=== PATIENT | female | born 1955 | race Caucasian/White ===

== ENCOUNTER 2017-09-08 08:23 | Outpatient (CLI) | payer BC ==
--- NOTE | 2017-09-20 16:00 | MMO ---
BILATERAL DIGITAL SCREENING MAMMOGRAMS: Date: 09/08/2017 HISTORY: A 62-year-old female presents for digital screening mammography. COMPARISON: 04/04/2007. FINDINGS: This patient's mammogram was interpreted with the assistance of computer-aided detection. Scattered areas of fibroglandular density are noted bilaterally. Typically benign calcifications ar e noted. No evidence of malignancy. IMPRESSION: BIRADS 2: Benign Finding(s) Continue routine screening. POS: [facility]
== END 2017-09-08 08:24 | disposition home or self-care (01) ==
LOC: MAMMO 08:23
PROVIDERS: ATTEND Family Medicine
DX: Z12.31 Encounter for screening mammogram for malignant neoplasm of breast (principal)
CPT/HCPCS: 77067; G0202

== ENCOUNTER 2017-09-23 16:10 | Inpatient (IN) | payer BC ==
[2017-09-23 16:44] LABS: #Eosinphils 0.1 thou/uL (0.0-0.7); #Lymphocytes 1.6 thou/uL (1.20-3.40); #Monocytes 0.8 thou/uL (0.11-0.59); #Neutrophils 8.7 thou/uL (1.40-6.50); %Basophils 0.3 % (0.0-1.0); %Eosinophils 0.8 % (0.0-10.0); %Lymphocytes 14.3 % (21.0-51.0); %Monocytes 6.9 % (0.0-10.0); Hematocrit 40.9 % (36.0-47.0); Mean Platelet Volume 7.1 fL (7.4-10.4); Red Blood Cell (RBC) Count 4.31 mill/uL (4.20-5.40); White Blood Cell (WBC) Count 11.2 thou/uL (4.8-10.8)
--- NOTE | 2017-09-23 16:59 | RAD ---
CHEST PA AND LATERAL: 09/23/17 HISTORY: 62-year-old female with cough. COMPARISON: 09/05/17. FINDINGS: Heart size is normal. There is some patchy linear and interstitial parenchymal changes in the right infrahilar region and right and left upper lobes which are more marked than on a prior 09/05/17 stud y and are concerning bilateral atypical pneumonia or pneumonitis. No pleural effusion. IMPRESSION: Patchy bilateral interstitial and linear parenchymal changes in the right infrahilar region, right u pper lobe, and left upper lobes, new from the prior study, evidence for minimal atypical pneumonia o r pneumonitis. No overt confluent process. No pleural effusion or cardiomegaly. POS: [facility]
[2017-09-23 17:08] LABS: Prothrombin Time 12.9 SEC (12.0-14.7)
[2017-09-23 17:22] LABS: Lactic Acid - Sepsis 1.3 mmol/L (0.5-2.2)
[2017-09-23 17:25] LABS: Troponin I Less than 0.010 ng/mL (< 0.028)
[2017-09-23 17:26] LABS: ALT (SGPT) 14 U/L (8-55); AST (SGOT) 16 U/L (5-34); Alkaline Phosphatase 119 U/L (40-150); Anion Gap 13 mmol/L (10-20); BUN (Urea Nitrogen) 6 mg/dL (9.8-20.1); Bilirubin, Total 0.6 mg/dL (0.2-1.2); Calc. Creatinine Clearance 0 mL/min (70-130); Calcium 9.3 mg/dL (7.8-10.44); Carbon Dioxide 27 mmol/L (23-31); Chloride 98 mmol/L (98-107); Estimated GFR-MDRD Greater than 90; Globulin 3.3 g/dL (2.4-3.5); Lipase 6 U/L (8-78); Magnesium 1.7 mg/dL (1.6-2.6); Protein, Total 7.1 g/dL (6.0-8.3)
[2017-09-23] MEDS ORDERED: Cefepime 1 GM, Admixture Fee 1 EACH in Sodium Chloride 0.9% 100 ML IVPB SCH (17:30)
[2017-09-23] MEDS ORDERED: methylPREDNISolone Sod Succ/PF 125 MG/2 ML VIAL ONE (18:17)
[2017-09-23 18:31] LABS: Bilirubin Negative (Negative); Blood, Urine Negative (Negative); Glucose, Urine (Dipstick) 100 mg/dL (Negative); Ketone, Urine Negative (Negative); Nitrite Negative (Negative); Protein, Urine (Dipstick) Negative (Neg-Trace)
[2017-09-23] MEDS ORDERED: Acetaminophen 325 MG TAB PO PRN (20:14)
[2017-09-23] MEDS ORDERED: Ondansetron ODT 4 MG TAB SL PRN (20:14)
[2017-09-23] MEDS ORDERED: Ondansetron HCl/PF 4 MG/2 ML Vial IVP PRN (20:14)
[2017-09-23] MEDS ORDERED: Sodium Chloride 0.45% 1,000 ML IV SCH (20:15)
--- NOTE | 2017-09-23 21:13 | PDOC.EVN ---
Event Note - Event Note Event Note: [id number] H&P Dictated 1. Pneumonia 2. HTN 3. Acute hypoxic respiratory failure + Acute COPD exacerbation 4. DM type 2 5. H/O CAD plan; see orders
[2017-09-23] MEDS ORDERED: Dextrose 5% in Water 1,000 ML IV PRN (22:09)
[2017-09-23] MEDS ORDERED: Dextrose 50% Abboject 50 ML SYRINGE SLOW IVP PRN (22:09)
[2017-09-23] MEDS: Benzonatate 100 MG CAP PO PRN (22:39)
[2017-09-23] MEDS: HumaLOG 300 UNITS/3 ML VIAL SC PRN (22:39)
--- NOTE | 2017-09-24 06:39 | HP ---
CHIEF COMPLAINT: Cough and chest congestion. HISTORY OF PRESENT ILLNESS: The patient is a 62-year-old female with past medical history of chroni c obstructive pulmonary disease, hypertension, hyperlipidemia, diabetes mellitus type 2 and coronary artery disease, now came to the hospital because of cough. Cough started 3 weeks back associated w ith sputum production, sputum was yellow in color, with chest congestion also. The patient started having trouble breathing. Denies any chest pain, denies any palpitations, denies any dizziness. Co mplains of wheezing also. Patient tried some breathing treatments. It did not help. Patient tried outpatient antibiotics cefdinir and finished the antibiotic 7 days back, but the cough did not get better, cough got worse, so she came to the ER. Complains of some vomiting with the cough. Positiv e for nausea. Complains of low-grade fever. Positive for chills. Denies any other complaints at t his time. PAST MEDICAL HISTORY: As per HPI. PAST SURGICAL HISTORY: Cardiac stents and 3 C-sections. SOCIAL HISTORY: Positive for smoking. Denies alcohol, denies any drugs. FAMILY HISTORY: Positive for heart problems. REVIEW OF SYSTEMS: Constitutional: Positive for fever and chills. Eyes: Denies any vision proble ms. Ears: Denies any hearing loss. Neck: Denies any neck pain. Cardiovascular system: Denies a ny chest pain. Respiratory System: Positive for cough, positive for chest congestion. Integumenta ry: Denies any rash. Musculoskeletal: Denies any joint deformities. Cranial Nervous System: Den ies syncope, denies stiffness. Psychiatric: Denies anxiety. All other review of systems are revie wed and are negative. PHYSICAL EXAMINATION: CONSTITUTIONAL/VITAL SIGNS: At the time of H\T\P performed, pulse ox 88% on room air and 96% on 2 l iters, blood pressure is 131/62, temperature 99.1 and heart rate 93. GENERAL: The patient appears tired. HEENT: Anterior nares patent. Nose normal. Ears normal. Teeth intact. Tongue is moist. NECK: Supple. No JVD. CARDIOVASCULAR SYSTEM: S1 and S2 present. Regular rate and rhythm. No murmurs, no rubs, no gallop s. RESPIRATORY SYSTEM: Positive for wheezing. Positive for crackles. Diminished at the bases. Barbara l respiratory effort. GASTROINTESTINAL: Abdomen is soft and nontender. No guarding, no organomegaly, no masses felt. MUSCULOSKELETAL: No edema. INTEGUMENT: No rashes seen. PSYCHIATRIC: Mood is appropriate at this time. LABORATORY AND IMAGING DATA: At the time of H\T\P performed? chest x-ray positive for possible atyp ical pneumonia. Lab showed sodium of 134, potassium 3.9, chloride 98, CO2 of 27, BUN of 6, creatini ne 0.65 and glucose 197. Troponin less than 0.010, CK-MB 1.6 and albumin 3.8. ASSESSMENT AND PLAN: The patient is a 62-year-old female. 1. Pneumonia. Plan to place the patient on broad-spectrum antibiotics. Plan to admit the patient to the hospital. Plan to monitor the patient closely. 2. Acute hypoxic respiratory failure plus chronic obstructive pulmonary disease exacerbation. Cont inue oxygen nasal cannula. Plan to place the patient on breathing treatments. Plan to start the pa tient on IV steroids. We will monitor respiratory status closely. 3. History of hypertension. Monitor blood pressure. Continue blood pressure medications. 4. History of diabetes type 2. Monitor blood sugars. We will do insulin sliding scale. 5. History of coronary artery disease. Continue home medications. 6. History of hyperlipidemia. Continue statins. The case was discussed in detail with the patient. Patient is FULL CODE.
[2017-09-24] MEDS: Mometasone/Formoterol 120 PUFF INHALER INH SCH ×2 (07:32→18:42)
[2017-09-24] MEDS: HumaLOG 300 UNITS/3 ML VIAL SC PRN ×2 (09:16→13:36)
[2017-09-24] MEDS: Escitalopram Oxalate 10 mg Tablet PO SCH (09:22)
[2017-09-24] MEDS: Ramipril 5 MG CAP PO SCH ×2 (09:22→20:52)
[2017-09-24] MEDS: Clopidogrel Bisulfate 75 MG TAB PO SCH (09:23)
[2017-09-24] MEDS: Carvedilol 6.25 MG TAB PO SCH ×2 (09:23→17:34)
[2017-09-24] MEDS: Cefepime 2 GM in Sodium Chloride 0.9% 100 ML IVPB SCH ×2 (10:49→20:53)
--- NOTE | 2017-09-24 11:01 | PDOC.PN ---
- Subjective Encounter Start Date: 09/24/17 Encounter Start Time: 10:30 Subjective: i feel better, walking with no problems - Objective Resuscitation Status: Resuscitation Status DNR:Do Not Resuscitate MAR Reviewed: Yes Vital Signs & Weight: Vital Signs (12 hours) Temp Pulse Resp BP BP Pulse Ox 09/24/17 09:23 135/64 09/24/17 09:22 135/64 09/24/17 08:00 98.1 F 89 20 135/64 09/24/17 07:36 97 09/24/17 07:32 82 16 09/24/17 04:17 98.6 F 88 20 126/60 93 L 09/24/17 02:23 78 14 97 09/23/17 23:44 97.7 F 86 20 126/59 L 93 L Weight Weight 150 lb I&O: 09/23/17 09/24/17 09/25/17 06:59 06:59 06:59 Intake Total 1065 Output Total 650 Balance 415 Result Diagrams: 09/23/17 16:34 09/23/17 16:34 Additional Labs: Accuchecks 09/24/17 09/23/17 05:44 20:23 POC Glucose 329 H 256 H Radiology Reviewed by me: Yes Phys Exam - Physical Examination Constitutional: NAD HEENT: PERRLA, moist MMs, sclera anicteric Neck: supple, full ROM Respiratory: no rhonchi, wheezing present, clear to auscultation bilateral Cardiovascular: RRR Gastrointestinal: soft, non-tender, positive bowel sounds Musculoskeletal: no edema Neurological: non-focal, moves all 4 limbs Psychiatric: normal affect, A&O x 3 Skin: no rash Dx/Plan (1) PNA (pneumonia) Code(s): J18.9 - PNEUMONIA, UNSPECIFIED ORGANISM Status: Acute (2) Acute respiratory failure Code(s): J96.00 - ACUTE RESPIRATORY FAILURE, UNSP W HYPOXIA OR HYPERCAPNIA Status: Acute (3) COPD exacerbation Code(s): J44.1 - CHRONIC OBSTRUCTIVE PULMONARY DISEASE W (ACUTE) EXACERBATION Status: Acute (4) CAD (coronary artery disease) Code(s): I25.10 - ATHSCL HEART DISEASE OF [place] CORONARY ARTERY W/O ANG PCTRS Status: Chronic Qualifiers: (5) DM type 2 (diabetes mellitus, type 2) Status: Chronic Qualifiers: (6) HTN (hypertension) Code(s): I10 - ESSENTIAL (PRIMARY) HYPERTENSION Status: Chronic Qualifiers: - Plan cont current plan of care, continue antibiotics, respiratory therapy * .
[2017-09-24] MEDS: Benzonatate 100 MG CAP PO PRN ×2 (15:01→23:20)
[2017-09-24] MEDS ORDERED: Acetaminophen 325 MG TAB PO PRN (20:09)
[2017-09-24] MEDS: Atorvastatin Calcium 10 MG TAB PO SCH (20:52)
[2017-09-24] MEDS ORDERED: Insulin Detemir 100 UNITS/ML 45 UNITS in Pre-Filled Syringe 1 EACH SC SCH (21:00)
[2017-09-24] MEDS ORDERED: Non-Formulary Item 1 EACH (Levemir Flexpen [Levemir Flexpen] 45 UNIT) SC SCH (21:00)
[2017-09-25] MEDS ORDERED: Benzonatate 100 MG CAP PO PRN (01:00)
[2017-09-25] MEDS ORDERED: Guaifenesin DM 100-10/5 ML UDCUP PO PRN (01:01)
[2017-09-25] MEDS ORDERED: guaiFENesin ER 600 MG TAB PO SCH (01:15)
[2017-09-25 05:29] LABS: #Eosinphils 0.1 thou/uL (0.0-0.7); #Lymphocytes 2.3 thou/uL (1.20-3.40); #Monocytes 0.7 thou/uL (0.11-0.59); #Neutrophils 6.7 thou/uL (1.40-6.50); %Basophils 0.3 % (0.0-1.0); %Eosinophils 0.8 % (0.0-10.0); %Lymphocytes 23.8 % (21.0-51.0); %Monocytes 7.4 % (0.0-10.0); Hematocrit 38.5 % (36.0-47.0); Mean Platelet Volume 7.5 fL (7.4-10.4); Red Blood Cell (RBC) Count 4.02 mill/uL (4.20-5.40); White Blood Cell (WBC) Count 9.8 thou/uL (4.8-10.8)
[2017-09-25 05:54] LABS: Anion Gap 12 mmol/L (10-20); BUN (Urea Nitrogen) 12 mg/dL (9.8-20.1); Calc. Creatinine Clearance 86 mL/min (70-130); Calcium 9.2 mg/dL (7.8-10.44); Carbon Dioxide 27 mmol/L (23-31); Chloride 102 mmol/L (98-107); Estimated GFR-MDRD 82
--- NOTE | 2017-09-25 08:28 | PDOC.PN ---
- Subjective Encounter Start Date: 09/25/17 Encounter Start Time: 08:27 Subjective: COUGH WITH WHITE SPUTUM - Objective Resuscitation Status: Resuscitation Status DNR:Do Not Resuscitate Vital Signs & Weight: Vital Signs (12 hours) Temp Pulse Resp BP BP Pulse Ox 09/25/17 04:00 97.7 F 80 16 143/66 H 92 L 09/24/17 23:28 20 93 L 09/24/17 20:52 120/58 L 09/24/17 20:45 98.1 F 77 20 92 L Weight Weight 150 lb I&O: 09/24/17 09/25/17 09/26/17 06:59 06:59 06:59 Intake Total 1065 2390 Output Total 650 800 Balance 415 1590 Result Diagrams: 09/25/17 04:46 09/25/17 04:46 Additional Labs: Accuchecks 09/25/17 09/24/17 09/24/17 06:10 20:22 15:54 POC Glucose 141 H 242 H 107 09/24/17 11:57 POC Glucose 324 H Phys Exam - Physical Examination Constitutional: NAD HEENT: PERRLA, moist MMs Neck: supple, full ROM Respiratory: wheezing present Cardiovascular: RRR, no significant murmur Gastrointestinal: soft, non-tender Musculoskeletal: no edema, pulses present Neurological: non-focal, normal sensation, moves all 4 limbs Psychiatric: normal affect, A&O x 3 Skin: no rash Dx/Plan (1) PNA (pneumonia) Code(s): J18.9 - PNEUMONIA, UNSPECIFIED ORGANISM Status: Acute (2) Acute respiratory failure Code(s): J96.00 - ACUTE RESPIRATORY FAILURE, UNSP W HYPOXIA OR HYPERCAPNIA Status: Acute (3) COPD exacerbation Code(s): J44.1 - CHRONIC OBSTRUCTIVE PULMONARY DISEASE W (ACUTE) EXACERBATION Status: Chronic (4) CAD (coronary artery disease) Code(s): I25.10 - ATHSCL HEART DISEASE OF [place] CORONARY ARTERY W/O ANG PCTRS Status: Chronic Qualifiers: (5) DM type 2 (diabetes mellitus, type 2) Status: Chronic Qualifiers: (6) HTN (hypertension) Code(s): I10 - ESSENTIAL (PRIMARY) HYPERTENSION Status: Chronic Qualifiers: - Plan cont current plan of care, continue antibiotics, respiratory therapy, incentive spirometry, out of bed/ambulate NEBS, AMBULATION , CHANGE TO PO ANTIMICROBIALS TOMORROW. D/C * .
[2017-09-25] MEDS: Carvedilol 6.25 MG TAB PO SCH ×2 (08:49→16:18)
[2017-09-25] MEDS: Escitalopram Oxalate 10 mg Tablet PO SCH (08:49)
[2017-09-25] MEDS: Ramipril 5 MG CAP PO SCH ×2 (08:49→20:45)
[2017-09-25] MEDS: Clopidogrel Bisulfate 75 MG TAB PO SCH (08:49)
[2017-09-25] MEDS: guaiFENesin ER 600 MG TAB PO SCH ×2 (08:50→20:46)
[2017-09-25] MEDS: Cefepime 2 GM, Syringe 2.5 ML in Sterile Water 10 ML SLOW IVP SCH ×2 (09:48→20:48)
[2017-09-25] MEDS: Mometasone/Formoterol 120 PUFF INHALER INH SCH ×2 (10:49→19:11)
--- NOTE | 2017-09-25 12:29 | PQF ---
CLINICAL DOCUMENTATION IMPROVEMENT CLARIFICATION FORM: ICD-10 Updated PLEASE DO AN ADDENDUM TO THE PROGRESS NOTE WITH ANY DOCUMENTATION UPDATES OR ADDITIONS AND CARRY THROUGH TO DC SUMMARY. THANK YOU. DATE: 09/25/17 ATTN: Dr. Askew Please exercise your independent, professional judgment in responding to the clarification form. Clinical indicators are provided on the bottom of this form for your review Please check appropriate box(s): [ ] Aspiration Pneumonia [ ] Empirically treating Gram Negative Pneumonia [ ] Empirically treating Anaerobic Pneumonia [ ] Pneumonia secondary to (specify organism / underlying disease) [ ] Simple Pneumonia (community acquired - nosocomial) [ ] Bronchopneumonia [ x ] Pneumonia of unknown etiology [ ] Other diagnosis [ ] Unable to determine For continuity of documentation, please document condition throughout progress notes and discharge summary. Thank You. CLINICAL INDICATORS - SIGNS / SYMPTOMS / LABS H&P: COUGH STARTED 3 WEEKS BACK COMPLAINS OF SOME VOMITING W/ THE COUGH. PNEUMONIA. PLAN TO PLACE PT ON [facility]TIBIOT[facility] PN 09/24-09/25: PNEUMONIA, UNSPECIFIED ORGANISM. ACUTE. RISKS: H&P: HX OF COPD; HTN DM 2, CAD. PT TRIED OUTPATIENT ANTIBIOTICS CEFDINIR & FINISHED THE ANTIBIOTIC 7 DAYS BACK, BUT COUGH DID NOT GET BETTER , GOT WORSE. TREATMENT: CPOE 09/23: LEVAQUIN 750MG IV Q 24 HR CPOE 09/23: MAXIPIME 2 GM IV Q 12 HR (This form is maintained as a part of the permanent medical record) 2014 [employer], [employer]. All Rights Reserved Rajni Soler RN, BSN [email or web address] Office: [phone] [facility]
[2017-09-25 12:50] VITALS: BMI 28.3
[2017-09-25] MEDS: HumaLOG 300 UNITS/3 ML VIAL SC PRN ×3 (13:47→20:47)
[2017-09-25] MEDS: Atorvastatin Calcium 10 MG TAB PO SCH (20:46)
[2017-09-26] MEDS ORDERED: hydrALAZINE 20 MG/ML VIAL SLOW IVP PRN (04:50)
[2017-09-26] MEDS ORDERED: Ondansetron HCl/PF 4 MG/2 ML Vial IVP PRN (04:51)
[2017-09-26] MEDS ORDERED: hydrALAZINE 20 MG/ML VIAL SLOW IVP SCH (05:00)
[2017-09-26 05:36] LABS: #Eosinphils 0.2 thou/uL (0.0-0.7); #Monocytes 0.7 thou/uL (0.11-0.59); #Neutrophils 5.8 thou/uL (1.40-6.50); %Basophils 0.4 % (0.0-1.0); %Eosinophils 2.4 % (0.0-10.0); %Lymphocytes 22.5 % (21.0-51.0); %Monocytes 8.1 % (0.0-10.0); Hematocrit 37.8 % (36.0-47.0); Mean Platelet Volume 7.3 fL (7.4-10.4); Red Blood Cell (RBC) Count 4.02 mill/uL (4.20-5.40); White Blood Cell (WBC) Count 8.7 thou/uL (4.8-10.8)
[2017-09-26 05:55] LABS: Anion Gap 11 mmol/L (10-20); BUN (Urea Nitrogen) 10 mg/dL (9.8-20.1); Calc. Creatinine Clearance 89 mL/min (70-130); Calcium 9.1 mg/dL (7.8-10.44); Carbon Dioxide 27 mmol/L (23-31); Chloride 100 mmol/L (98-107); Estimated GFR-MDRD 85
[2017-09-26] MEDS: Mometasone/Formoterol 120 PUFF INHALER INH SCH (07:29)
[2017-09-26] MEDS: Ramipril 5 MG CAP PO SCH (08:31)
[2017-09-26] MEDS: Carvedilol 6.25 MG TAB PO SCH (08:31)
[2017-09-26] MEDS: Clopidogrel Bisulfate 75 MG TAB PO SCH (08:32)
[2017-09-26] MEDS: guaiFENesin ER 600 MG TAB PO SCH (08:32)
[2017-09-26] MEDS: Escitalopram Oxalate 10 mg Tablet PO SCH (08:32)
[2017-09-26] MEDS: Cefepime 2 GM, Syringe 2.5 ML in Sterile Water 10 ML SLOW IVP SCH (08:54)
[2017-09-26] MEDS ORDERED: Insulin Detemir 100 UNITS/ML 45 UNITS in Pre-Filled Syringe 1 EACH SC SCH (09:00)
[2017-09-26 09:36] VITALS: BP 139/67; TEMP 98.1
--- NOTE | 2017-09-26 13:50 | DIS ---
DATE OF ADMISSION: 09/23/2017 DATE OF DISCHARGE: 09/26/2017 PRIMARY DIAGNOSIS: Pneumonia. SECONDARY DISCHARGE DIAGNOSES: Chronic obstructive pulmonary disease, diabetes, uncontrolled, hyper tension, dyslipidemia. HOSPITAL COURSE: The patient presented on the with complaints of cough with yellow sputum. Th e patient was found to have multilobar pneumonia. The patient was treated with IV Levaquin as well as nebulized beta 2 agonist and ipratropium. Her clinical condition improved during her hospital st ay. She was able to ambulate without symptoms and was deemed stable for discharge. The patient karen l be treated with p.o. Levaquin. She is encouraged to refrain from smoking, also encouraged to foll ow up with her PCP within 1 week for followup. CONSULTATIONS: None. PROCEDURES: None. PHYSICAL EXAMINATION: GENERAL: She is in no acute distress, pleasant, cooperative, nontoxic. HEAD: Normocephalic, atraumatic. EYES: PERRL. Extraocular muscles intact. ENT: Throat clear. NECK: Full range of motion. Supple. LUNGS: There are rhonchi present and scant wheezing, right greater than left. CARDIAC: Regular rate and rhythm. EXTREMITIES: No clubbing, cyanosis or edema. NEUROLOGIC: Full range of motion in all extremities. Cranial nerves II-XII grossly intact. DISCHARGE DISPOSITION: To home. DISCHARGE DIET: Cardiac and diabetic. DISCHARGE ACTIVITY: As tolerated. FOLLOWUP: The patient is to follow up with her PCP within 7 days and she is to refrain from tobacco use. DISCHARGE MEDICATIONS: She should resume her home medication regimen which includes nebulized beta agonist. We will also send her home with [facility] and [facility] for 5 days with continued out patient therapy.
== END 2017-09-26 10:52 | disposition home or self-care (01) | DRG 193 ==
LOC: ERS 16:10 → 2NO 18:26
PROVIDERS: ADMIT Internal Medicine; ATTEND Internal Medicine
DX: J18.9 Pneumonia, unspecified organism (principal); J96.01 Acute respiratory failure with hypoxia; J44.0 Chronic obstructive pulmonary disease with (acute) lower respiratory infection; J44.1 Chronic obstructive pulmonary disease with (acute) exacerbation; E11.65 Type 2 diabetes mellitus with hyperglycemia; I10 Essential (primary) hypertension; E78.5 Hyperlipidemia, unspecified; I25.10 Atherosclerotic heart disease of native coronary artery without angina pectoris; F17.210 Nicotine dependence, cigarettes, uncomplicated; Z82.49 Family history of ischemic heart disease and other diseases of the circulatory system
CPT/HCPCS: 36415; 36416; 71020; 80048; 80053; 81003; 82553; 83605; 83690; 83735; 83880; 84484; 85025; 85610; 85730; 87040; 93005; 94640; 94664; 96361; 96365; 96367; 96375; 99406; A4216; J0360; J0692; J1815; J1956; J2405; J2930; J7050; J7620

== ENCOUNTER 2017-10-02 15:46 | Outpatient (CLI) | payer BC ==
--- NOTE | 2017-10-02 19:11 | RAD ---
PA AND LATERAL CHEST: Indication: Pneumonia or both lungs due to infectious organisms. Comparison: 09-15-17 FINDINGS: Patchy reticular nodularity within the left upper lobe has improved. There is some mild residual reti cular nodularity within the right upper lobe. Patchy opacities remain within the right lung base. Hea rt size and pulmonary vasculature within normal limits. IMPRESSION: Some improvement in the reticular nodularity of the left upper lobe. Patchy opacities remain within t he right lung. Continued follow up is recommended. POS: [facility]
== END 2017-10-02 15:47 | disposition home or self-care (01) ==
LOC: SCSRAD 15:46
PROVIDERS: ATTEND Family Medicine
DX: J18.9 Pneumonia, unspecified organism (principal); R91.8 Other nonspecific abnormal finding of lung field
CPT/HCPCS: 71020

== ENCOUNTER 2017-10-19 23:54 | Emergency (ER) | payer BC ==
[2017-10-20] MEDS ORDERED: Ondansetron HCl/PF 4 MG/2 ML Vial ONE (00:49)
[2017-10-20 00:58] LABS: #Basophils 0.1 thou/uL (0.0-0.2); #Eosinphils 0.2 thou/uL (0.0-0.7); #Lymphocytes 1.9 thou/uL (1.20-3.40); #Monocytes 0.4 thou/uL (0.11-0.59); #Neutrophils 6.9 thou/uL (1.40-6.50); %Basophils 0.8 % (0.0-1.0); %Eosinophils 2.3 % (0.0-10.0); %Lymphocytes 19.5 % (21.0-51.0); %Monocytes 4.6 % (0.0-10.0); Hematocrit 42.4 % (36.0-47.0); Mean Platelet Volume 7.5 fL (7.4-10.4); Red Blood Cell (RBC) Count 4.51 mill/uL (4.20-5.40); White Blood Cell (WBC) Count 9.5 thou/uL (4.8-10.8)
[2017-10-20 01:05] LABS: PTT 29.1 SEC (22.9-36.1); Prothrombin Time 12.7 SEC (12.0-14.7)
[2017-10-20 01:23] LABS: ALT (SGPT) 10 U/L (8-55); AST (SGOT) 13 U/L (5-34); Alkaline Phosphatase 100 U/L (40-150); Anion Gap 13 mmol/L (10-20); BUN (Urea Nitrogen) 12 mg/dL (9.8-20.1); Bilirubin, Total 0.6 mg/dL (0.2-1.2); CK (CPK) 49 U/L (29-168); Calc. Creatinine Clearance 0 mL/min (70-130); Calcium 9.5 mg/dL (7.8-10.44); Carbon Dioxide 27 mmol/L (23-31); Chloride 100 mmol/L (98-107); Estimated GFR-MDRD Greater than 90; Globulin 2.6 g/dL (2.4-3.5); Lipase 29 U/L (8-78); Protein, Total 6.7 g/dL (6.0-8.3)
[2017-10-20 01:25] LABS: Troponin I Less than 0.010 ng/mL (< 0.028)
[2017-10-20 02:39] LABS: Bilirubin Negative (Negative); Blood, Urine Negative (Negative); Glucose, Urine (Dipstick) 100 mg/dL (Negative); Ketone, Urine Negative (Negative); Nitrite Negative (Negative); Protein, Urine (Dipstick) Negative (Neg-Trace)
--- NOTE | 2017-10-20 08:31 | CT ---
PRELIMINARY REPORT/[facility]/EMERGENCY AFTER HOURS PROCEDURE: EXAM: CT Abdomen and Pelvis With Intravenous Contrast EXAM DATE/TIME: Exam ordered 10/20/2017 1:52 AM CLINICAL HISTORY: 62 years old, female; Pain; Abdominal pain; Generalized TECHNIQUE: Axial computed tomography images of the abdomen and pelvis with intravenous contrast. Coronal reformatted images were created and reviewed. CONTRAST: 100 mL of ISOVUE administered intravenously. COMPARISON: No relevant prior studies available. FINDINGS: Lower thorax: The visualized portions of the lung bases are normal. ABDOMEN: Liver: There are no focal liver lesions present. Gallbladder and bile ducts: The gallbladder is normal. There is no evidence of biliary ductal dilatio n. No calcified stones. Pancreas: The pancreas is normal. No ductal dilation. Spleen: The spleen is normal. Adrenals: There is a mass in the left adrenal gland. The density of this lesion does not allow defini tive diagnosis of a benign adrenal adenoma on this enhanced examination. Definitive diagnosis of this adrenal lesion would require a noncontrast cross-sectional imaging study. The right adrenal gland is normal. Kidneys and ureters: The kidneys are normal. No hydronephrosis. Stomach and bowel: The stomach is normal. The duodenum is unremarkable. The colon is normal. There i s no evidence of intestinal perforation or obstruction. No mucosal thickening. Appendix: A normal appendix is identified. PELVIS: Bladder: The bladder is normal. Reproductive: The uterus is normal. ABDOMEN and PELVIS: Intraperitoneal space: Normal. No free air. No significant fluid collection. Bones/joints: No acute fracture. No dislocation. Soft tissues: Normal. Vasculature: The vasculature demonstrates diffuse moderate atherosclerotic calcification. No abdomina l aortic aneurysm. Lymph nodes: Normal. No enlarged lymph nodes. IMPRESSION: 1. No acute abdominal pelvic pathology. 2. There is a mass in the left adrenal gland. The density of this lesion does not allow definitive di agnosis of a benign adrenal adenoma on this enhanced examination. Definitive diagnosis of this adrena l lesion would require a noncontrast cross-sectional imaging study. Thank you for allowing us to participate in the care of your patient. Dictated and Authenticated by: Saad Alejandre MD 10/20/2017 2:20 AM Central Time ([place] & [place]) FINAL REPORT CT ABDOMEN AND PELVIS: Date: 10/20/17 COMPARISON: 10/19/17. HISTORY: Nausea, vomiting, and diarrhea with pain. FINDINGS: I agree with the preliminary report given by [facility]. Imaged lung bases are unremarkable. No free intrap eritoneal air or fluid. Liver, spleen, gallbladder, pancreas, right adrenal gland, and bilateral kidn eys are grossly unremarkable. There is a left adrenal mass noted, measuring up to 1.6 cm in transverse dimension, unchanged when co mpared to the study compared 05/10/11. That prior examination demonstrated that this lesion represent s a benign adrenal adenoma. There is diverticulosis of the sigmoid colon with no evidence for diverticulitis. No evidence for bow el inflammatory change or obstruction. The appendix appears within normal limits. There is extensive atherosclerotic calcification of the abdominal aorta and its branches. No pelvic r etroperitoneal or mesenteric lymphadenopathy. Osseous structures demonstrate No acute findings. IMPRESSION: Stable CT examination of the abdomen/pelvis. No evidence for free intraperitoneal air, bowel inflamma tory change, or bowel obstruction. POS: [facility]
--- NOTE | 2017-10-20 09:14 | RAD ---
UPRIGHT PORTABLE CHEST 1 VIEW: Date: 10/20/17 HISTORY: 62-year-old female with vomiting and chest pain. COMPARISON: 12/25/16. FINDINGS: Mild increased linear and interstitial markings bilaterally. No confluent pneumonia, overt edema, ple ural effusion, or other acute process. IMPRESSION: Mild stable chronic changes. POS: [facility]
[2017-10-20] MEDS ORDERED: ISOVUE-370 76%-LOCM 1 ML ONE (17:00)
== END 2017-10-20 02:41 | disposition home or self-care (01) ==
LOC: ERS 23:54
DX: R11.2 Nausea with vomiting, unspecified (principal); R19.7 Diarrhea, unspecified; J44.9 Chronic obstructive pulmonary disease, unspecified; E78.5 Hyperlipidemia, unspecified; I25.2 Old myocardial infarction; E11.9 Type 2 diabetes mellitus without complications; F17.210 Nicotine dependence, cigarettes, uncomplicated; Z79.4 Long term (current) use of insulin; Z79.84 Long term (current) use of oral hypoglycemic drugs; Z79.899 Other long term (current) drug therapy
CPT/HCPCS: 71010; 74177; 80053; 81003; 82553; 83690; 84484; 85025; 85610; 85730; 93005; 96361; 96374; 99406; J2405

== ENCOUNTER 2017-11-22 07:17 | Outpatient (CLI) | payer BC ==
--- NOTE | 2017-11-22 14:13 | NM ---
RADIONUCLIDE GASTRIC EMPTYING SCAN: HISTORY: Gastritis, unspecified. Constipation. Nausea and vomiting. RADIOPHARMACEUTICAL: Technetium 99m sulfur colloid, 2 millicuries, administered orally in scrambled eggs. FINDINGS: There is 64% emptying of the ingested gastric contents at 1 hour, 98% emptying at 2 hours, 99% emptyi ng at 3 hours, and 99% emptying at 4 hours. IMPRESSION: Normal exam. POS: [facility]
== END 2017-11-22 07:18 | disposition home or self-care (01) ==
LOC: NM 07:17
PROVIDERS: ATTEND Internal Medicine
DX: K29.70 Gastritis, unspecified, without bleeding (principal); K59.09 Other constipation; R11.2 Nausea with vomiting, unspecified
CPT/HCPCS: 78264; A9541

== ENCOUNTER 2017-12-06 09:43 | Outpatient (CLI) | payer BC ==
--- NOTE | 2017-12-06 11:36 | RAD ---
CHEST 2 VIEWS: Date: 12/06/17 HISTORY: Pneumonia. Follow-up. COMPARISON: 10/02/17. FINDINGS: Cardiac silhouette and pulmonary vasculature are unremarkable. Mediastinum is midline. There is no co nfluent air space consolidation, pneumothorax, or pleural fluid apparent. IMPRESSION: No active cardiopulmonary abnormalities are demonstrated. POS: [facility]
== END 2017-12-06 09:44 | disposition home or self-care (01) ==
LOC: SCSRAD 09:43
PROVIDERS: ATTEND Family Medicine
DX: J18.9 Pneumonia, unspecified organism (principal)
CPT/HCPCS: 71046

== ENCOUNTER 2018-04-20 07:26 | Outpatient (CLI) | payer BC, OTHER ==
[2018-04-20] MEDS ORDERED: ISOVUE-370 76%-LOCM 1 ML ONE (11:13)
== END 2018-04-20 07:27 | disposition home or self-care (01) ==
LOC: BICCT 07:26
PROVIDERS: ATTEND Family Medicine
DX: E27.9 Disorder of adrenal gland, unspecified (principal)
CPT/HCPCS: 74170

== ENCOUNTER 2019-07-12 08:29 | Outpatient (CLI) | payer BC ==
--- NOTE | 2019-07-12 10:44 | BD ---
DEXA Bone Density Indications: Post-menopausal osteoporosis screening. Lumbar Spine: BMD (g/cm2) L1 0.865 T-Score: -1.1 L2 0.863 T-Score: -1.5 L3 0.719 T-Score: -3.3 L4 0.479 T-Score: -2.5 L1-L4 0.806 T-Score: -2.2 Femoral Neck: 0.574 T-Score: -2.5 Total Femur: 0.724 T-Score: -1.8 Impression: 1. Bone mineral density of the femoral neck indicates osteoporosis. 2. Bone mineral density of the lumbar spine indicates osteopenia. POS: [facility]
--- NOTE | 2019-07-17 13:38 | MMO ---
Bilateral MAMMO Bilat Screen DDI+JD. CLINICAL HISTORY: Patient is 64 years old and is seen for screening. The patient has no family history of breast cancer. The patient has no personal history of cancer. VIEWS: The views performed were: bilateral craniocaudal with tomosynthesis and bilateral mediolateral oblique with tomosynthesis. FILMS COMPARED: The present examination has been compared to a prior imaging study performed at [facility] on 04/04/2007. MAMMOGRAM FINDINGS: The breasts are almost entirely fat. There are stable benign appearing calcifications seen in both breasts. There are no suspicious masses, suspicious calcifications, or new areas of architectural distortion. IMPRESSION: THERE IS NO MAMMOGRAPHIC EVIDENCE OF MALIGNANCY. A ROUTINE FOLLOW-UP MAMMOGRAM IN 1 YEAR IS RECOMMENDED. THE RESULTS OF THIS EXAM WERE SENT TO THE PATIENT. ACR BI-RADS Category 2 - Benign finding MAMMOGRAPHY NOTE: 1. A negative mammogram report should not delay a biopsy if a dominant of clinically suspicious mass is present. 2. Approximately 10% to 15% of breast cancers are not detected by mammography. 3. Adenosis and dense breasts may obscure an underlying neoplasm. Reported by: MARYBETH PALACIO MD Electonically Signed: [id number]
== END 2019-07-12 08:30 | disposition home or self-care (01) ==
LOC: BICMAMMO 08:29
PROVIDERS: ATTEND Family Medicine
DX: Z12.31 Encounter for screening mammogram for malignant neoplasm of breast (principal); Z78.0 Asymptomatic menopausal state; M81.0 Age-related osteoporosis without current pathological fracture
CPT/HCPCS: 77063; 77067; 77080

== ENCOUNTER 2019-08-16 20:10 | Observation (INO) | payer BC ==
[2019-08-16 20:41] LABS: #Eosinphils 0.1 thou/uL (0.0-0.7); #Lymphocytes 2.1 thou/uL (1.20-3.40); #Monocytes 0.7 thou/uL (0.11-0.59); #Neutrophils 9.4 thou/uL (1.40-6.50); %Basophils 0.3 % (0.0-1.0); %Eosinophils 0.7 % (0.0-10.0); %Lymphocytes 16.8 % (21.0-51.0); %Monocytes 5.5 % (0.0-10.0); %Neutrophils 76.7 % (42.0-75.0); Hemoglobin 14.7 g/dL (12.0-16.0); Mean Corpuscular HGB CONC 33.4 g/dL (32.0-36.0); Mean Corpuscular Hemoglobin 30.8 pg (27.0-31.0); Mean Corpuscular Volume 92.4 fL (78.0-98.0); Mean Platelet Volume 7.6 fL (7.4-10.4); Platelet Count 237 thou/uL (130-400); RBC Distribution Width 12.6 % (11.5-14.5); Red Blood Cell (RBC) Count 4.77 mill/uL (4.20-5.40); White Blood Cell (WBC) Count 12.2 thou/uL (4.8-10.8)
--- NOTE | 2019-08-16 20:49 | RAD ---
Portable frontal chest radiograph: 08/16/2019 COMPARISON: 08/12/2019 HISTORY: Cough, pneumonia FINDINGS: Lungs are clear. Heart and mediastinal contours appear within normal limits. Stable mild in creased linear interstitial density with pulmonary hyperinflation. IMPRESSION: No acute findings.
[2019-08-16 20:56] LABS: ALT (SGPT) 20 U/L (8-55); AST (SGOT) 13 U/L (5-34); Albumin 3.9 g/dL (3.4-4.8); Alkaline Phosphatase 91 U/L (40-150); Anion Gap 12 mmol/L (10-20); BUN (Urea Nitrogen) 12 mg/dL (9.8-20.1); Bilirubin, Total 0.6 mg/dL (0.2-1.2); Calc. Creatinine Clearance 0 mL/min (70-130); Calcium 9.3 mg/dL (7.8-10.44); Carbon Dioxide 27 mmol/L (23-31); Chloride 99 mmol/L (98-107); Estimated GFR-MDRD 78; Globulin 2.4 g/dL (2.4-3.5); Glucose 145 mg/dL (80-115); Lactic Acid 1.7 mmol/L (0.5-2.2); Lipase 27 U/L (8-78); Protein, Total 6.3 g/dL (6.0-8.3); Sodium 134 mmol/L (136-145)
[2019-08-16 21:00] LABS: Troponin I 0.016 ng/mL (< 0.028)
[2019-08-16] MEDS ORDERED: Ondansetron PF 4 MG/2 ML Vial ONE (21:19)
[2019-08-16] MEDS ORDERED: Promethazine HCl 25 MG/ML VIAL ONE (21:41)
[2019-08-16 22:16] LABS: Bilirubin Negative (Negative); Blood, Urine Negative (Negative); Clarity Clear (Clear); Glucose, Urine (Dipstick) Normal (Negative); Leukocyte Negative Leu/uL (Negative); Nitrite Negative (Negative); Protein, Urine (Dipstick) Negative (Neg-Trace); Urobilinogen Normal mg/dL (Less than 2)
[2019-08-17] MEDS ORDERED: methylPREDNISolone Sod Succ/PF 125 MG/2 ML VIAL ONE (00:28)
[2019-08-17] MEDS ORDERED: Ondansetron ODT 4 MG TAB SL PRN (01:48)
[2019-08-17] MEDS ORDERED: Acetaminophen 325 MG TAB PO PRN (01:48)
[2019-08-17] MEDS ORDERED: Ondansetron PF 4 MG/2 ML Vial IVP PRN (01:48)
[2019-08-17] MEDS ORDERED: Lactated Ringer's 1,000 ML IV SCH (02:00)
[2019-08-17 02:33] VITALS: BMI 30.7
[2019-08-17 03:01] LABS: Troponin I 0.015 ng/mL (< 0.028)
[2019-08-17] MEDS ORDERED: Cyclobenzaprine 10 MG TAB PO PRN (04:37)
[2019-08-17] MEDS ORDERED: PROVENTIL INHALER 6.7 G (200 INHALATIONS) INH PRN (04:37)
[2019-08-17] MEDS ORDERED: Dextrose 5% in Water 1,000 ML IV PRN (05:02)
[2019-08-17] MEDS ORDERED: Dextrose 50% Abboject 50 ML SYRINGE SLOW IVP PRN (05:02)
[2019-08-17] MEDS: methylPREDNISolone Sod Succ 40 MG VIAL IVP SCH ×4 (05:16→23:37)
[2019-08-17] MEDS: Bacteriostatic Water 30 ML VIAL FS PRN ×2 (05:16→23:37)
--- NOTE | 2019-08-17 05:48 | HP ---
PRIMARY CARE DOCTOR: Dr. River. CODE STATUS: Full code. TIME OF EVALUATION: 4:45 a.m. CHIEF COMPLAINT: Abdominal pain and cough. HISTORY OF PRESENT ILLNESS: This is a 64-year-old female patient, past medical history of COPD, recently admitted to the hospital, found to have pneumonia, went to home and started taking patient started having nausea, vomiting, and abdominal pain. Also, the symptoms were associated with nausea, abdominal pain, diaphoresis, no clear triggers, no alleviating factors. The symptoms were severe, associated with shortness of breath and cough. REVIEW OF SYSTEMS: All systems were reviewed and negative, except for the findings mentioned above. PAST MEDICAL HISTORY: Positive for COPD, hyperlipidemia, coronary artery disease with previous stents placed in 2004, diabetes type 2. SURGICAL HISTORY: Stents in the heart x7, C-sections x3, and tubal ligation. PSYCHIATRIC HISTORY: No previous psych history. SOCIAL HISTORY: Patient lives at home with family. Patient denies alcohol use. Patient denies any drugs. Patient smokes half a pack per day. FAMILY HISTORY: Reviewed, noncontributory to current presentation. KNOWN ALLERGIES: No known drug allergies. REPORTED MEDICATION: 1. Metformin. 2. Plavix. 3. Levemir. 4. Carvedilol. 5. Zofran. 6. Ramipril. 7. Citalopram. 8. Atorvastatin. 9. NovoLog. 10. Symbicort. 11. Albuterol. 12. Aspirin. 13. Cyclobenzaprine. PHYSICAL EXAMINATION: VITAL SIGNS: On presentation, blood pressure 188/101 with heart rate 88, respiratory rate was 20, temperature 99, pain was 4, and oxygen saturation was 94% on room air. GENERAL APPEARANCE: The patient is alert and oriented, in no acute distress. HEENT: Eyes; normal conjunctivae. Moist oral mucosa. Anicteric. NECK: No JVD. RESPIRATORY: Bilateral air entry. Patient has bilateral wheezing. They are minimal, scattered. CARDIOVASCULAR: Normal rate, regular rhythm. No murmurs. No gallop. No edema. ABDOMEN: Soft. Normal bowel sounds. MUSCULOSKELETAL: Baseline range of motion and strength. SKIN: Warm and intact. No pallor. No rash. No redness. Capillary refill seems to be intact. NEUROLOGIC: No evidence of any new focal weakness. Cranial nerves seem to be intact. PSYCH: Patient is in good mood. No anxiety. Optimal judgment. DATA REVIEWED: EKG was done and showed normal sinus rhythm at the rate of 85. No acute findings on the x-ray. LABORATORY DATA: Reviewed. The patient has white count 12.2, MCV 92.4, and platelet count 237. Chemistry; sodium 134, potassium 4.0, chloride 99, carbon dioxide 27, anion gap 12, BUN 12, creatinine 0.75, GFR 78, and glucose 145. LFTs were negative. Lactic acid was negative. Troponin was negative. Urine was negative. ASSESSMENT AND PLAN: The patient will be placed in the hospital with the following medical problems. 1. Chronic obstructive pulmonary disease exacerbation. Patient has more cough and shortness of breath. Patient will be started on oxygen, antibiotics, bronchodilators, and steroid. We will continue for now. Symptoms are much improved. 2. Uncontrolled diabetes with blood sugar 145. We will place the patient on sliding scale. Reconcile home medications. 3. Leukocytosis with white count of 12.2. No evidence of sepsis. We will monitor and treat accordingly. 4. Hyponatremia, sodium 134, this is minimal. We will monitor, replace electrolytes as needed. 5. Hyperlipidemia. Low-cholesterol diet. Reconcile home medications. Job ID: [id number]
[2019-08-17] MEDS: Insulin Regular 300 UNITS/3 ML VIAL SC PRN ×3 (06:17→16:58)
[2019-08-17] MEDS: Mometasone/Formoterol 120 PUFF INHALER INH SCH ×2 (06:53→18:43)
[2019-08-17] MEDS ORDERED: HumaLOG 300 UNITS/3 ML VIAL SC PRN (07:30)
[2019-08-17] MEDS: metFORMIN XR 500 MG TAB PO SCH ×2 (08:15→16:11)
[2019-08-17] MEDS: Ramipril 5 MG CAP PO SCH ×2 (08:16→21:37)
[2019-08-17] MEDS: Escitalopram Oxalate 10 mg Tablet PO SCH (08:16)
[2019-08-17] MEDS: Clopidogrel Bisulfate 75 MG TAB PO SCH (08:16)
[2019-08-17] MEDS: Insulin Glargine 35 UNITS in Pre-Filled Syringe 1 EACH SC SCH ×2 (08:18→21:37)
[2019-08-17] MEDS: Carvedilol 6.25 MG TAB PO SCH ×2 (08:21→21:37)
[2019-08-17] MEDS ORDERED: Prevnar 13-Val Conj/PF 0.5 ML SYRINGE IM ONE (09:00)
[2019-08-17] MEDS ORDERED: Non-Formulary Item 1 EACH (Levemir Flexpen [Levemir Flexpen] 35 UNIT) SC SCH (09:00)
--- NOTE | 2019-08-17 11:07 | PDOC.HOSPP ---
- Subjective Encounter Date: 08/17/19 Encounter Time: 11:04 Subjective: Feeling a little better. Slight episode of nausea, but quickly resolved. - Objective Vital Signs & Weight: Vital Signs (12 hours) Temp Pulse Resp BP Pulse Ox 08/17/19 08:00 98.4 F 98 20 112/58 L 92 L 08/17/19 06:53 100 16 08/17/19 06:42 90 L 08/17/19 06:39 100 16 08/17/19 04:24 99.4 F 91 17 160/71 H 93 L 08/17/19 04:02 95 08/17/19 04:00 95 08/17/19 02:23 88 172/75 H 08/17/19 02:08 85 178/78 H 92 L 08/17/19 01:38 98.4 F 93 13 185/84 H 88 L Weight Weight 162 lb 14.4 oz I&O: 08/16/19 08/17/19 08/18/19 06:59 06:59 06:59 Intake Total 338.6 Output Total 200 Balance 338.6 -200 Result Diagrams: 08/16/19 20:30 08/16/19 20:30 Additional Labs: Accuchecks 08/17/19 08/17/19 08/17/19 10:54 06:11 02:48 POC Glucose 302 H 271 H 140 H 08/17/19 01:44 POC Glucose 53 L* Hospitalist ROS - Medication Medications: Active Medications Generic Name Dose Route Start Last Admin Trade Name Freq PRN Reason Stop Dose Admin Albuterol/Ipratropium 3 ml 08/17/19 02:30 08/17/19 06:39 Duoneb NEB 08/23/19 11:50 3 ml [id number] PRAVEENA Administration Carvedilol 6.25 mg 08/17/19 09:00 08/17/19 08:21 Coreg PO 6.25 mg BID PRAVEENA Administration Clopidogrel Bisulfate 75 mg 08/17/19 09:00 08/17/19 08:16 Plavix PO 75 mg DAILY PRAVEENA Administration Escitalopram Oxalate 10 mg 08/17/19 09:00 08/17/19 08:16 Lexapro PO 10 mg DAILY PRAVEENA Administration Levofloxacin 750 mg/ Device 150 mls @ 100 mls/hr 08/17/19 05:00 08/17/19 05: 19 IVPB 150 mls Q24HR PRAVEENA Administration Insulin Glargine 35 units/ 0.35 mls @ 0 mls/hr 08/17/19 09:00 08/17/19 08:18 Miscellaneous Medication SC 0.35 mls BID PRAVEENA Administration Insulin Human Regular 0 units 08/17/19 05:02 08/17/19 10:59 Humulin R SC 5 unit .MILD SLIDING SCALE PRN Administration Mild Correctional Scale Metformin HCl 500 mg 08/17/19 08:00 08/17/19 08:15 Glucophage Xr PO 500 mg BID-WM PRAVEENA Administration Methylprednisolone Sodium Succinate 40 mg 08/17/19 06:00 08/17/19 10:59 Solu-Medrol IVP 40 mg Q6HR PRAVEENA Administration Mometasone Furoate/Formoterol Fumar 2 puff 08/17/19 06:30 08/17/19 06:53 Dulera 200 Mcg/5 Mcg Inhaler INH 2 puff BID-RT PRAVEENA Administration Ramipril 10 mg 08/17/19 09:00 08/17/19 08:16 Altace PO 10 mg BID PRAVEENA Administration Sodium Chloride 10 ml 08/17/19 01:48 08/17/19 05:21 Flush - Normal Saline IVF 08/17/19 11:50 10 ml PRN PRN Administration Saline Flush Sterile Water 1 ml 08/17/19 04:36 08/17/19 05:16 Bacteriostatic Water FS 1 ml PRN PRN Administration RECONSTITUTION - Exam General Appearance: NAD, awake alert Neck: supple, symmetric, no JVD, no thyromegaly, no lymphadenopathy, no carotid bruit Heart: RRR, no murmur, no gallops, no rubs, normal peripheral pulses Respiratory: rales Respiratory - other findings: Bases Gastrointestinal: soft, non-tender, non-distended, normal bowel sounds, no palpable masses, no hepatomegaly, no splenomegaly, no bruit Extremities: no clubbing, no edema Hosp A/P (1) Nausea & vomiting Code(s): R11.2 - NAUSEA WITH VOMITING, UNSPECIFIED Status: Acute (2) PNA (pneumonia) Code(s): J18.9 - PNEUMONIA, UNSPECIFIED ORGANISM Status: Acute (3) CAD (coronary artery disease) Code(s): I25.10 - ATHSCL HEART DISEASE OF [place] CORONARY ARTERY W/O ANG PCTRS Status: Chronic Qualifiers: (4) COPD exacerbation Code(s): J44.1 - CHRONIC OBSTRUCTIVE PULMONARY DISEASE W (ACUTE) EXACERBATION Status: Chronic (5) DM type 2 (diabetes mellitus, type 2) Status: Chronic Qualifiers: (6) Dyslipidemia Code(s): E78.5 - HYPERLIPIDEMIA, UNSPECIFIED Status: Chronic (7) HTN (hypertension) Code(s): I10 - ESSENTIAL (PRIMARY) HYPERTENSION Status: Chronic Qualifiers: - Plan Unclear if the meds (Doxy, Chantix) were causing her N/V or if this was infectious. Has had them both in the past without problem. Had some diarrhea as well. Feeling better now. Continue with IV abx, IV steroids. If ok in am, will transition back to po's. Committed to smoking cessation.
[2019-08-17] MEDS ORDERED: Atorvastatin Calcium 10 MG TAB PO SCH (21:00)
[2019-08-17] MEDS ORDERED: Aspirin Chewable 81 MG TAB PO SCH (21:00)
[2019-08-17] MEDS ORDERED: Insulin Regular 300 UNITS/3 ML VIAL SC PRN (22:30)
[2019-08-18 05:05] LABS: #Eosinphils 0.1 thou/uL (0.0-0.7); #Lymphocytes 0.8 thou/uL (1.20-3.40); #Monocytes 0.5 thou/uL (0.11-0.59); #Neutrophils 13.3 thou/uL (1.40-6.50); %Basophils 0.2 % (0.0-1.0); %Eosinophils 0.4 % (0.0-10.0); %Lymphocytes 5.5 % (21.0-51.0); %Monocytes 3.4 % (0.0-10.0); %Neutrophils 90.5 % (42.0-75.0); Hemoglobin 13.1 g/dL (12.0-16.0); Mean Corpuscular HGB CONC 33.9 g/dL (32.0-36.0); Mean Corpuscular Hemoglobin 31.4 pg (27.0-31.0); Mean Corpuscular Volume 92.5 fL (78.0-98.0); Mean Platelet Volume 7.7 fL (7.4-10.4); Platelet Count 203 thou/uL (130-400); RBC Distribution Width 12.6 % (11.5-14.5); Red Blood Cell (RBC) Count 4.17 mill/uL (4.20-5.40); White Blood Cell (WBC) Count 14.7 thou/uL (4.8-10.8)
[2019-08-18 05:29] LABS: Anion Gap 13 mmol/L (10-20); BUN (Urea Nitrogen) 14 mg/dL (9.8-20.1); Calc. Creatinine Clearance 85 mL/min (70-130); Calcium 9.5 mg/dL (7.8-10.44); Carbon Dioxide 27 mmol/L (23-31); Chloride 98 mmol/L (98-107); Estimated GFR-MDRD 75; Glucose 314 mg/dL (80-115); Potassium 4.4 mmol/L (3.5-5.1); Sodium 134 mmol/L (136-145)
[2019-08-18] MEDS: methylPREDNISolone Sod Succ 40 MG VIAL IVP SCH (05:49)
[2019-08-18] MEDS: Insulin Regular 300 UNITS/3 ML VIAL SC PRN (05:50)
[2019-08-18] MEDS: metFORMIN XR 500 MG TAB PO SCH (07:42)
[2019-08-18 08:06] VITALS: BP 167/71; TEMP 98.1
[2019-08-18] MEDS: Mometasone/Formoterol 120 PUFF INHALER INH SCH (08:20)
[2019-08-18] MEDS: Escitalopram Oxalate 10 mg Tablet PO SCH (08:21)
[2019-08-18] MEDS: Ramipril 5 MG CAP PO SCH (08:21)
[2019-08-18] MEDS: Clopidogrel Bisulfate 75 MG TAB PO SCH (08:21)
[2019-08-18] MEDS: Insulin Glargine 35 UNITS in Pre-Filled Syringe 1 EACH SC SCH (08:22)
[2019-08-18] MEDS: Carvedilol 6.25 MG TAB PO SCH (08:22)
--- NOTE | 2019-08-18 12:37 | DIS ---
DATE OF ADMISSION: 08/17/2019 DATE OF DISCHARGE: 08/18/2019 DISCHARGE DIAGNOSES: 1. Pneumonia with chronic obstructive pulmonary disease exacerbation. 2. Nausea and vomiting. 3. Pneumonia. 4. Coronary artery disease. 5. Hypertension. 6. Chronic obstructive pulmonary disease. 7. Diabetes mellitus. 8. Dyslipidemia. 9. Hypertension. HISTORY OF PRESENT ILLNESS: This patient is a 64-year-old female, who presented via the emergency department. She had a history of COPD and was reporting progressive abdominal pain with some slight dizziness. The patient had started on p.o. antibiotics for pneumonia just days prior and has been started on Chantix for smoking cessation. She subsequently was having increasing abdominal discomfort, nausea, vomiting, and shortness of breath. The patient had a followup chest x-ray, which appeared to be unremarkable, although she had persistent rales at both bases of her lungs. She was rather placed on observation status. The patient continued on nebulizer treatments. She was given some steroids and fluids. Her nausea and vomiting abated promptly and she continued to feel significantly better. She did have some hyperglycemia related to the steroid use. However, she was fully back to eating and drinking without difficulty and her breathing was comfortable. With that, the patient was felt to be stable for discharge. PHYSICAL EXAMINATION: VITAL SIGNS: On the day of discharge, temperature was 98.2, pulse 85, respirations 20, O2 saturation 93% on room air, and blood pressure 158/71. GENERAL APPEARANCE: Age-appropriate female, awake and alert. HEART: Regular rate and rhythm. LUNGS: Slightly diminished with persistent mild bibasilar rales. ABDOMEN: Soft, nontender, and nondistended. EXTREMITIES: No edema. DISCHARGE LABORATORY DATA: White count 14.7 (elevated due to steroids), hemoglobin was 13.1, and platelets 203. Sodium 134, potassium 4.4, chloride 98, CO2 of 27, BUN 14, creatinine 0.77, glucose was 314, and calcium 9.5. DISPOSITION: The patient is discharged to home. DISCHARGE INSTRUCTIONS: She is continue with her usual home medication regimen with the addition of prednisone 20 mg p.o. daily for 3 days and Levaquin 500 mg p.o. daily for an additional 4 days. She is to follow up with Dr. River as she has scheduled an appointment with him for Monday, 08/23, and she can return to work the following Monday. She will be on her persistent diabetic diet and her activity level is as tolerated. She can return to the hospital at anytime should she feel the need. Job ID: [id number]
== END 2019-08-18 10:25 | disposition home or self-care (01) ==
LOC: ERS 20:10 → 2SW 08-17 01:36
PROVIDERS: ADMIT Hospitalist; ATTEND Hospitalist
DX: J44.1 Chronic obstructive pulmonary disease with (acute) exacerbation (principal); J18.9 Pneumonia, unspecified organism; R11.2 Nausea with vomiting, unspecified; I25.10 Atherosclerotic heart disease of native coronary artery without angina pectoris; E78.5 Hyperlipidemia, unspecified; I10 Essential (primary) hypertension; E11.9 Type 2 diabetes mellitus without complications; F17.210 Nicotine dependence, cigarettes, uncomplicated; E87.1 Hypo-osmolality and hyponatremia; D72.829 Elevated white blood cell count, unspecified; Z79.02 Long term (current) use of antithrombotics/antiplatelets; Z79.4 Long term (current) use of insulin; Z79.82 Long term (current) use of aspirin; Z79.899 Other long term (current) drug therapy; Z95.5 Presence of coronary angioplasty implant and graft
CPT/HCPCS: 36415; 36416; 71045; 80048; 80053; 81003; 83605; 83690; 84484; 85025; 90471; 90670; 93005; 94640; 94664; 96365; 96366; 96367; 96375; 96376; G0009; G0378; J1815; J1956; J2405; J2550; J2920; J2930; J7620

== ENCOUNTER 2020-10-31 11:19 | Emergency (ER) | payer BC ==
[2020-10-31 12:25] LABS: #Eosinphils 0.1 thou/uL (0.0-0.7); #Lymphocytes 1.5 thou/uL (1.20-3.40); #Monocytes 0.4 thou/uL (0.11-0.59); #Neutrophils 6.1 thou/uL (1.40-6.50); %Basophils 0.3 % (0.0-1.0); %Eosinophils 1.1 % (0.0-10.0); %Lymphocytes 18.8 % (21.0-51.0); %Monocytes 4.7 % (0.0-10.0); %Neutrophils 75.1 % (42.0-75.0); Hemoglobin 14.6 g/dL (12.0-16.0); Mean Corpuscular HGB CONC 33.6 g/dL (32.0-36.0); Mean Corpuscular Hemoglobin 32.1 pg (27.0-31.0); Mean Corpuscular Volume 95.6 fL (78.0-98.0); Mean Platelet Volume 8.1 fL (7.4-10.4); Platelet Count 224 thou/uL (130-400); RBC Distribution Width 12.7 % (11.5-14.5); Red Blood Cell (RBC) Count 4.55 mill/uL (4.20-5.40); White Blood Cell (WBC) Count 8.1 thou/uL (4.8-10.8)
--- NOTE | 2020-10-31 12:40 | RAD ---
PORTABLE CHEST: INDICATION: Cough. COMPARISON: 08/16/2019. FINDINGS: Lungs appear clear. No focal infiltrate. Mild interstitial prominence is stable. Heart and mediast inum unremarkable. No effusion. IMPRESSION: No acute process or significant interval change. POS: AGW
[2020-10-31] MEDS ORDERED: predniSONE 20 MG TAB ONE (12:46)
[2020-10-31] MEDS ORDERED: Azithromycin 500 MG VIAL ONE (12:46)
[2020-10-31] MEDS ORDERED: cefTRIAXone\\ROCEPHIN 1 GM VIAL ONE (12:46)
[2020-10-31 12:49] LABS: ALT (SGPT) 14 U/L (8-55); AST (SGOT) 17 U/L (5-34); Albumin 3.8 g/dL (3.4-4.8); Alkaline Phosphatase 119 U/L (40-110); Anion Gap 19 mmol/L (10-20); BUN (Urea Nitrogen) 9 mg/dL (9.8-20.1); Bilirubin, Total 0.5 mg/dL (0.2-1.2); Calc. Creatinine Clearance 0 mL/min (70-130); Calcium 8.7 mg/dL (7.8-10.44); Carbon Dioxide 23 mmol/L (23-31); Chloride 100 mmol/L (98-107); Globulin 2.6 g/dL (2.4-3.5); Glucose 263 mg/dL (80-115); Potassium 4.9 mmol/L (3.5-5.1); Protein, Total 6.4 g/dL (6.0-8.3); Sodium 137 mmol/L (136-145)
[2020-10-31] MEDS ORDERED: Albuterol Sulfate 2.5 mg/0.5 ml Neb ONE (13:39)
[2020-10-31] MEDS ORDERED: Sodium Chloride For Inhalation 0.9% 3 ML NEB ONE (13:43)
[2020-10-31 14:54] LABS: Bilirubin Negative (Negative); Blood, Urine Negative (Negative); Clarity Clear (Clear); Glucose, Urine (Dipstick) 300 mg/dL (Negative); Ketone, Urine Negative (Negative); Leukocyte Negative Leu/uL (Negative); Nitrite Negative (Negative); Protein, Urine (Dipstick) Negative (Neg-Trace); Specific Gravity, Urine 1.009 (1.002-1.036); Urobilinogen Normal mg/dL (Less than 2)
--- NOTE | 2020-10-31 15:04 | CT ---
EXAM: CT angiogram of the chest including 3-D rendering: HISTORY: COPD shortness of breath prior Covid in July COMPARISON: None FINDINGS: There is adequate opacification of the pulmonary arteries. No evidence for aortic aneurysm or dissection. No convincing CT evidence for acute pulmonary embolism. Scattered minimal bullous emphysema changes as well as some bilateral linear and interstitial changes including some honeycombing evidence for chronic change. Extensive 3 vessel coronary artery calcific disease. No evidence for mediastinal mass or adenopathy. No evidence for pleural or pericardial effusion. Somewhat enlarged left adrenal gland evidence for hyperplasia or possibly associated adenoma but with out discrete nodule. IMPRESSION: No convincing CT evidence for acute pulmonary embolism.
[2020-10-31] MEDS ORDERED: Azithromycin 250 MG TAB ONE (15:35)
[2020-10-31 21:58] LABS: SARS-CoV-2 MS2 Positive; SARS-CoV-2 N Gene Negative; SARS-CoV-2 S Gene Negative; SARS-CoV-2 by NAA Not Detected (NotDetected); SARS-CoV-2 orf1ab Negative
== END 2020-10-31 15:45 | disposition home or self-care (01) ==
LOC: ERS 11:19
DX: J44.1 Chronic obstructive pulmonary disease with (acute) exacerbation (principal); Z20.828 Contact with and (suspected) exposure to other viral communicable diseases; E78.5 Hyperlipidemia, unspecified; I25.2 Old myocardial infarction; E11.9 Type 2 diabetes mellitus without complications; F17.210 Nicotine dependence, cigarettes, uncomplicated; Z79.4 Long term (current) use of insulin
CPT/HCPCS: 36415; 71045; 71275; 80053; 81003; 83880; 84484; 85025; 85379; 87635; 93005; 96365; J0456; J0696; J7512; J7611; U0003

== ENCOUNTER 2021-03-29 07:51 | Outpatient (CLI) | payer BC, MEDICARE | END 2021-03-29 07:52 | disposition home or self-care (01) | LOC: BICMAMMO 07:51 | PROVIDERS: ATTEND Family Medicine | DX: Z12.31 Encounter for screening mammogram for malignant neoplasm of breast (principal); M81.0 Age-related osteoporosis without current pathological fracture; Z80.3 Family history of malignant neoplasm of breast | CPT/HCPCS: 77063; 77067; 77080 ==

== ENCOUNTER 2021-04-24 02:35 | Inpatient (IN) | payer BC, MEDICARE ==
[2021-04-24 04:03] LABS: #Eosinphils 0.1 thou/uL (0.0-0.7); #Lymphocytes 1.4 thou/uL (1.20-3.40); #Monocytes 0.4 thou/uL (0.11-0.59); #Neutrophils 9.8 thou/uL (1.40-6.50); %Basophils 0.1 % (0.0-1.0); %Eosinophils 0.8 % (0.0-10.0); %Lymphocytes 11.7 % (21.0-51.0); %Neutrophils 84.4 % (42.0-75.0); Hemoglobin 15.2 g/dL (12.0-16.0); Mean Corpuscular HGB CONC 31.9 g/dL (32.0-36.0); Mean Corpuscular Hemoglobin 29.9 pg (27.0-31.0); Mean Corpuscular Volume 93.6 fL (78.0-98.0); Mean Platelet Volume 7.7 fL (7.4-10.4); Platelet Count 195 thou/uL (130-400); Red Blood Cell (RBC) Count 5.08 mill/uL (4.20-5.40); White Blood Cell (WBC) Count 11.6 thou/uL (4.8-10.8)
[2021-04-24 04:29] LABS: ALT (SGPT) 19 U/L (8-55); AST (SGOT) 20 U/L (5-34); Alkaline Phosphatase 167 U/L (40-110); Anion Gap 15 mmol/L (10-20); BUN (Urea Nitrogen) 17 mg/dL (9.8-20.1); Bilirubin, Total 0.5 mg/dL (0.2-1.2); CK (CPK) 110 U/L (29-168); Calc. Creatinine Clearance 0 mL/min (70-130); Calcium 9.2 mg/dL (7.8-10.44); Carbon Dioxide 25 mmol/L (23-31); Chloride 101 mmol/L (98-107); Globulin 2.8 g/dL (2.4-3.5); Glucose 288 mg/dL (80-115); Potassium 4.8 mmol/L (3.5-5.1); Protein, Total 6.8 g/dL (5.8-8.1); Sodium 136 mmol/L (136-145)
[2021-04-24 04:53] LABS: CKMB 7.3 ng/mL (0-6.6)
[2021-04-24] MEDS ORDERED: Labetalol HCl 100 MG/20 ML VIAL ONE (04:57)
[2021-04-24] MEDS ORDERED: Aspirin Chewable 81 MG TAB ONE (04:59)
[2021-04-24 07:07] LABS: Troponin I 0.642 ng/mL (< 0.028)
[2021-04-24 07:28] VITALS: BMI 26.9
[2021-04-24] MEDS ORDERED: Senokot S 8.6-50 MG TAB PO PRN (07:46)
[2021-04-24] MEDS ORDERED: Dextrose 5% in Water 1,000 ML IV PRN (07:46)
[2021-04-24] MEDS ORDERED: Dextrose 50% Abboject 50 ML SYRINGE SLOW IVP PRN (07:46)
[2021-04-24] MEDS ORDERED: Nitroglycerin 0.4 MG TAB (25 Tab Bottle) SL PRN (07:46)
[2021-04-24] MEDS ORDERED: Ondansetron ODT 4 MG TAB PO PRN (07:46)
[2021-04-24] MEDS ORDERED: Heparin 25,000 units/D5W 500 ML IVPB SCH (08:00)
[2021-04-24] MEDS ORDERED: Heparin 10,000 UNITS/ 10 ML VIAL SLOW IVP SCH (08:00)
[2021-04-24] MEDS ORDERED: hydrALAZINE 20 MG/ML VIAL SLOW IVP PRN (08:05)
[2021-04-24 08:48] LABS: SARS-CoV-2 NAA Rapid Test Not Detected (NotDetected)
[2021-04-24] MEDS: Sodium Chloride 0.9% 1,000 ML IV SCH ×2 (08:52→16:07)
[2021-04-24] MEDS: predniSONE 20 MG TAB PO SCH (08:57)
[2021-04-24] MEDS: Ramipril 5 MG CAP PO SCH (08:57)
[2021-04-24] MEDS: Nicotine 14 MG PATCH TD SCH (08:57)
[2021-04-24] MEDS: Aspirin Chewable 81 MG TAB PO SCH (08:57)
[2021-04-24] MEDS: Carvedilol 6.25 MG TAB PO SCH ×2 (08:59→14:37)
[2021-04-24] MEDS ORDERED: Famotidine/PF 20 mg/2ml Vial SLOW IVP SCH (09:00)
[2021-04-24 09:27] LABS: Hemoglobin 14.3 g/dL (12.0-16.0); Platelet Count 192 thou/uL (130-400)
[2021-04-24 10:20] LABS: Troponin I 1.982 ng/mL (< 0.028)
[2021-04-24] MEDS ORDERED: Enoxaparin Sodium 60 MG/0.6 ML SYRINGE SC SCH (13:45)
[2021-04-24] MEDS ORDERED: Clopidogrel Bisulfate 75 MG TAB PO SCH ×2 (13:45→14:00)
[2021-04-24] MEDS: HumaLOG 300 UNITS/3 ML VIAL SC PRN ×2 (16:08→22:31)
[2021-04-24] MEDS: Budesonide 0.5 MG/2 ML NEB NEB SCH (19:35)
[2021-04-24] MEDS: Enoxaparin Sodium 60 MG/0.6 ML SYRINGE SC SCH (20:30)
[2021-04-24] MEDS: Atorvastatin Calcium 40 MG TAB PO SCH (20:30)
[2021-04-24] MEDS: Famotidine 20 MG TAB PO SCH (20:30)
[2021-04-24] MEDS: Lantus 1000 UNITS/10 ML VIAL SC SCH (20:31)
[2021-04-25 05:35] LABS: #Eosinphils 0.1 thou/uL (0.0-0.7); #Lymphocytes 2.4 thou/uL (1.20-3.40); #Monocytes 0.8 thou/uL (0.11-0.59); #Neutrophils 6.1 thou/uL (1.40-6.50); %Basophils 0.3 % (0.0-1.0); %Lymphocytes 25.5 % (21.0-51.0); %Monocytes 8.6 % (0.0-10.0); %Neutrophils 64.6 % (42.0-75.0); Hemoglobin 12.9 g/dL (12.0-16.0); Mean Corpuscular HGB CONC 33.1 g/dL (32.0-36.0); Mean Corpuscular Hemoglobin 30.7 pg (27.0-31.0); Mean Corpuscular Volume 92.6 fL (78.0-98.0); Mean Platelet Volume 7.7 fL (7.4-10.4); Platelet Count 176 thou/uL (130-400); RBC Distribution Width 12.9 % (11.5-14.5); Red Blood Cell (RBC) Count 4.19 mill/uL (4.20-5.40); White Blood Cell (WBC) Count 9.4 thou/uL (4.8-10.8)
[2021-04-25 05:57] LABS: Anion Gap 8 mmol/L (10-20); BUN (Urea Nitrogen) 17 mg/dL (9.8-20.1); Calc. Creatinine Clearance 71 mL/min (70-130); Carbon Dioxide 30 mmol/L (23-31); Chloride 101 mmol/L (98-107); Glucose 209 mg/dL (80-115); Potassium 4.3 mmol/L (3.5-5.1); Sodium 135 mmol/L (136-145)
[2021-04-25] MEDS: HumaLOG 300 UNITS/3 ML VIAL SC PRN ×5 (06:42→20:42)
[2021-04-25] MEDS: Budesonide 0.5 MG/2 ML NEB NEB SCH ×2 (07:51→19:50)
[2021-04-25] MEDS: Carvedilol 6.25 MG TAB PO SCH ×3 (09:13→19:40)
[2021-04-25] MEDS: Clopidogrel Bisulfate 75 MG TAB PO SCH (09:13)
[2021-04-25] MEDS: Aspirin Chewable 81 MG TAB PO SCH (09:14)
[2021-04-25] MEDS: Ramipril 5 MG CAP PO SCH (09:14)
[2021-04-25] MEDS: predniSONE 20 MG TAB PO SCH (09:14)
[2021-04-25] MEDS: Enoxaparin Sodium 60 MG/0.6 ML SYRINGE SC SCH ×2 (09:14→20:35)
[2021-04-25] MEDS: Lantus 1000 UNITS/10 ML VIAL SC SCH ×2 (09:14→20:35)
[2021-04-25] MEDS: Famotidine 20 MG TAB PO SCH ×2 (09:14→20:36)
[2021-04-25] MEDS: Nicotine 14 MG PATCH TD SCH (09:45)
[2021-04-25] MEDS ORDERED: Communication Order-Pharmacy FS SCH (14:00)
[2021-04-25 14:27] LABS: Troponin I 2.452 ng/mL (< 0.028)
[2021-04-25] MEDS: Atorvastatin Calcium 40 MG TAB PO SCH (20:36)
[2021-04-26 04:29] LABS: #Eosinphils 0.1 thou/uL (0.0-0.7); #Lymphocytes 1.7 thou/uL (1.20-3.40); #Monocytes 0.7 thou/uL (0.11-0.59); #Neutrophils 6.3 thou/uL (1.40-6.50); %Basophils 0.5 % (0.0-1.0); %Eosinophils 0.6 % (0.0-10.0); %Lymphocytes 18.8 % (21.0-51.0); %Monocytes 8.5 % (0.0-10.0); %Neutrophils 71.7 % (42.0-75.0); Hemoglobin 12.9 g/dL (12.0-16.0); Mean Corpuscular HGB CONC 33.9 g/dL (32.0-36.0); Mean Corpuscular Hemoglobin 31.5 pg (27.0-31.0); Mean Platelet Volume 7.7 fL (7.4-10.4); Platelet Count 173 thou/uL (130-400); RBC Distribution Width 12.7 % (11.5-14.5); White Blood Cell (WBC) Count 8.8 thou/uL (4.8-10.8)
[2021-04-26 04:49] LABS: Anion Gap 12 mmol/L (10-20); BUN (Urea Nitrogen) 18 mg/dL (9.8-20.1); Calc. Creatinine Clearance 72 mL/min (70-130); Calcium 9.1 mg/dL (7.8-10.44); Carbon Dioxide 27 mmol/L (23-31); Chloride 101 mmol/L (98-107); Glucose 288 mg/dL (80-115); Potassium 4.1 mmol/L (3.5-5.1); Sodium 136 mmol/L (136-145)
[2021-04-26] MEDS: HumaLOG 300 UNITS/3 ML VIAL SC PRN ×4 (06:18→20:51)
[2021-04-26] MEDS: Budesonide 0.5 MG/2 ML NEB NEB SCH ×2 (06:35→19:05)
[2021-04-26 07:49] LABS: Hemoglobin 13.4 g/dL (12.0-16.0); Platelet Count 182 thou/uL (130-400)
[2021-04-26] MEDS: Aspirin Chewable 81 MG TAB PO SCH (08:21)
[2021-04-26] MEDS: Famotidine 20 MG TAB PO SCH ×2 (08:21→20:50)
[2021-04-26] MEDS: Ramipril 5 MG CAP PO SCH (08:22)
[2021-04-26] MEDS: Carvedilol 6.25 MG TAB PO SCH ×2 (08:22→16:56)
[2021-04-26] MEDS: Clopidogrel Bisulfate 75 MG TAB PO SCH (08:23)
[2021-04-26] MEDS: predniSONE 20 MG TAB PO SCH (08:23)
[2021-04-26] MEDS: Nicotine 14 MG PATCH TD SCH (08:24)
[2021-04-26] MEDS: Enoxaparin Sodium 60 MG/0.6 ML SYRINGE SC SCH ×2 (08:24→20:50)
[2021-04-26] MEDS: Lantus 1000 UNITS/10 ML VIAL SC SCH ×2 (08:38→20:51)
[2021-04-26] MEDS ORDERED: Amlodipine 10 MG TAB PO SCH (10:15)
[2021-04-26] MEDS ORDERED: HumaLOG 300 UNITS/3 ML VIAL SC SCH (17:15)
[2021-04-26] MEDS: Atorvastatin Calcium 40 MG TAB PO SCH (20:50)
[2021-04-27] MEDS: Carvedilol 6.25 MG TAB PO SCH ×2 (06:00→17:32)
[2021-04-27] MEDS: predniSONE 20 MG TAB PO SCH (06:00)
[2021-04-27] MEDS: Aspirin Chewable 81 MG TAB PO SCH (06:01)
[2021-04-27] MEDS: Clopidogrel Bisulfate 75 MG TAB PO SCH (06:01)
[2021-04-27] MEDS: Ramipril 5 MG CAP PO SCH (06:01)
[2021-04-27] MEDS: Famotidine 20 MG TAB PO SCH ×2 (06:01→20:04)
[2021-04-27] MEDS: Budesonide 0.5 MG/2 ML NEB NEB SCH ×2 (06:41→19:07)
[2021-04-27] MEDS: Ondansetron PF 4 MG/2 ML Vial IVP PRN ×2 (08:07→15:37)
[2021-04-27] MEDS ORDERED: Iopamidol 370 76% 100 ML VIAL ONE (08:28)
[2021-04-27] MEDS ORDERED: Iopamidol 370 76% 50 ML VIAL FS ONE (08:28)
[2021-04-27] MEDS ORDERED: Amlodipine 10 MG TAB PO SCH (09:00)
[2021-04-27] MEDS ORDERED: Lidocaine 1% (PF) 30 ML VIAL ONE (09:03)
[2021-04-27] MEDS ORDERED: Fentanyl 100 MCG/2 ML VIAL ONE (09:34)
[2021-04-27] MEDS ORDERED: Midazolam HCl 2 mg/2 ml Vial ONE (09:34)
[2021-04-27] MEDS ORDERED: Heparin 10,000 UNITS/ 10 ML VIAL ONE (09:56)
[2021-04-27] MEDS ORDERED: Morphine 4 MG/ML VIAL ONE (10:59)
[2021-04-27] MEDS ORDERED: Sodium Chloride 0.9% 250 ML IV SCH (12:30)
[2021-04-27] MEDS: Lantus 1000 UNITS/10 ML VIAL SC SCH ×2 (14:14→20:05)
[2021-04-27] MEDS: Nicotine 14 MG PATCH TD SCH (14:15)
[2021-04-27] MEDS ORDERED: Morphine 2 MG/ML VIAL SLOW IVP PRN (15:20)
[2021-04-27] MEDS: HumaLOG 300 UNITS/3 ML VIAL SC PRN ×2 (17:33→20:27)
[2021-04-27] MEDS: Atorvastatin Calcium 40 MG TAB PO SCH (20:05)
[2021-04-28 04:40] LABS: #Basophils 0.1 thou/uL (0.0-0.2); #Eosinphils 0.1 thou/uL (0.0-0.7); #Lymphocytes 2.3 thou/uL (1.20-3.40); #Monocytes 0.8 thou/uL (0.11-0.59); #Neutrophils 6.6 thou/uL (1.40-6.50); %Basophils 0.6 % (0.0-1.0); %Eosinophils 1.1 % (0.0-10.0); %Lymphocytes 23.4 % (21.0-51.0); %Monocytes 7.9 % (0.0-10.0); Hemoglobin 14.8 g/dL (12.0-16.0); Mean Corpuscular HGB CONC 33.5 g/dL (32.0-36.0); Mean Corpuscular Hemoglobin 31.4 pg (27.0-31.0); Mean Corpuscular Volume 93.9 fL (78.0-98.0); Mean Platelet Volume 7.8 fL (7.4-10.4); Platelet Count 185 thou/uL (130-400); White Blood Cell (WBC) Count 9.9 thou/uL (4.8-10.8)
[2021-04-28 05:02] LABS: ALT (SGPT) 26 U/L (8-55); AST (SGOT) 25 U/L (5-34); Albumin 3.7 g/dL (3.4-4.8); Alkaline Phosphatase 101 U/L (40-110); Anion Gap 12 mmol/L (10-20); BUN (Urea Nitrogen) 14 mg/dL (9.8-20.1); Bilirubin, Total 0.7 mg/dL (0.2-1.2); Calc. Creatinine Clearance 79 mL/min (70-130); Calcium 9.1 mg/dL (7.8-10.44); Carbon Dioxide 26 mmol/L (23-31); Chloride 101 mmol/L (98-107); Globulin 2.4 g/dL (2.4-3.5); Glucose 192 mg/dL (80-115); Potassium 4.2 mmol/L (3.5-5.1); Protein, Total 6.1 g/dL (5.8-8.1); Sodium 135 mmol/L (136-145)
[2021-04-28] MEDS: Budesonide 0.5 MG/2 ML NEB NEB SCH ×2 (06:36→20:29)
[2021-04-28] MEDS: Clopidogrel Bisulfate 75 MG TAB PO SCH (09:37)
[2021-04-28] MEDS: Famotidine 20 MG TAB PO SCH ×2 (09:37→20:27)
[2021-04-28] MEDS: predniSONE 20 MG TAB PO SCH (09:37)
[2021-04-28] MEDS: Nicotine 14 MG PATCH TD SCH (09:37)
[2021-04-28] MEDS: Carvedilol 6.25 MG TAB PO SCH ×2 (09:37→17:34)
[2021-04-28] MEDS: Aspirin Chewable 81 MG TAB PO SCH (09:38)
[2021-04-28] MEDS: Lantus 1000 UNITS/10 ML VIAL SC SCH ×2 (09:38→20:26)
[2021-04-28 10:31] LABS: Hemoglobin 14.5 g/dL (12.0-16.0); Platelet Count 186 thou/uL (130-400)
[2021-04-28] MEDS: HumaLOG 300 UNITS/3 ML VIAL SC PRN ×2 (11:20→20:31)
[2021-04-28] MEDS: Atorvastatin Calcium 40 MG TAB PO SCH (20:27)
[2021-04-28] MEDS: Sacubitril 49 MG/Valsartan 51 MG TABLET PO SCH (20:27)
[2021-04-29] MEDS: HumaLOG 300 UNITS/3 ML VIAL SC PRN (05:55)
[2021-04-29] MEDS: Budesonide 0.5 MG/2 ML NEB NEB SCH (07:30)
[2021-04-29 07:58] VITALS: TEMP 96.5
[2021-04-29] MEDS: Sacubitril 49 MG/Valsartan 51 MG TABLET PO SCH (08:14)
[2021-04-29] MEDS: Aspirin Chewable 81 MG TAB PO SCH (08:14)
[2021-04-29] MEDS: predniSONE 20 MG TAB PO SCH (08:14)
[2021-04-29] MEDS: Carvedilol 6.25 MG TAB PO SCH (08:14)
[2021-04-29] MEDS: Clopidogrel Bisulfate 75 MG TAB PO SCH (08:15)
[2021-04-29] MEDS: Famotidine 20 MG TAB PO SCH (08:15)
[2021-04-29] MEDS: Lantus 1000 UNITS/10 ML VIAL SC SCH (08:16)
[2021-04-29] MEDS: Nicotine 14 MG PATCH TD SCH (08:20)
[2021-04-29 11:42] VITALS: BP 135/78
== END 2021-04-29 11:55 | disposition home or self-care (01) | DRG 281 ==
LOC: SUATTDRO 02:35 → ERS 02:35 → 2SW 05:33 → OBSVTOIN 08:09 → 2NO 04-25 18:10
PROVIDERS: ADMIT Student in an Organized Health Care Education/Training Program; ATTEND Internal Medicine
PROC: 4A023N7 Measurement of Cardiac Sampling and Pressure, Left Heart, Percutaneous Approach (ICD-10-PCS; principal; 2021-04-27)
PROC: B2151ZZ Fluoroscopy of Left Heart using Low Osmolar Contrast (ICD-10-PCS; 2021-04-27)
PROC: B2111ZZ Fluoroscopy of Multiple Coronary Arteries using Low Osmolar Contrast (ICD-10-PCS; 2021-04-27)
DX: I21.4 Non-ST elevation (NSTEMI) myocardial infarction (principal); J44.1 Chronic obstructive pulmonary disease with (acute) exacerbation; I16.1 Hypertensive emergency; I50.22 Chronic systolic (congestive) heart failure; I16.0 Hypertensive urgency; Z20.822 Contact with and (suspected) exposure to COVID-19; E78.5 Hyperlipidemia, unspecified; I25.10 Atherosclerotic heart disease of native coronary artery without angina pectoris; F17.210 Nicotine dependence, cigarettes, uncomplicated; I25.5 Ischemic cardiomyopathy; E78.00 Pure hypercholesterolemia, unspecified; E11.65 Type 2 diabetes mellitus with hyperglycemia; Z79.82 Long term (current) use of aspirin; Z79.51 Long term (current) use of inhaled steroids; Z79.899 Other long term (current) drug therapy; Z95.5 Presence of coronary angioplasty implant and graft; I25.2 Old myocardial infarction; Z79.4 Long term (current) use of insulin; Z98.51 Tubal ligation status
CPT/HCPCS: 36415; 36416; 71045; 71275; 80048; 80053; 82550; 82553; 84484; 85014; 85018; 85025; 85049; 85347; 85379; 93005; 93010; 93306; 93458; 93798; 94640; 94760; 96374; 96376; 99152; 99153; G0378; J0360; J1644; J1650; J1815; J2001; J2250; J2270; J2405; J3010; J7512; J7620; J7626; Q0162; Q9967; S0028; U0002; U0005

== ENCOUNTER 2021-11-04 07:49 | Observation (INO) | payer BC, MEDICARE ==
[2021-11-04 08:24] LABS: #Eosinphils 0.1 thou/uL (0.0-0.7); #Lymphocytes 1.2 thou/uL (1.20-3.40); #Monocytes 0.5 thou/uL (0.11-0.59); #Neutrophils 6.7 thou/uL (1.40-6.50); %Basophils 0.3 % (0.0-1.0); %Eosinophils 1.2 % (0.0-10.0); %Lymphocytes 14.1 % (21.0-51.0); %Neutrophils 78.5 % (42.0-75.0); Hemoglobin 13.9 g/dL (12.0-16.0); Mean Corpuscular HGB CONC 31.9 g/dL (32.0-36.0); Mean Corpuscular Hemoglobin 30.1 pg (27.0-31.0); Mean Corpuscular Volume 94.2 fL (78.0-98.0); Mean Platelet Volume 6.9 fL (7.4-10.4); Platelet Count 224 thou/uL (130-400); RBC Distribution Width 13.7 % (11.5-14.5); White Blood Cell (WBC) Count 8.5 thou/uL (4.8-10.8)
[2021-11-04 08:48] LABS: ALT (SGPT) 20 U/L (8-55); AST (SGOT) 20 U/L (5-34); Albumin 3.8 g/dL (3.4-4.8); Alkaline Phosphatase 80 U/L (40-110); Anion Gap 15 mmol/L (10-20); BUN (Urea Nitrogen) 12 mg/dL (9.8-20.1); Bilirubin, Total 0.9 mg/dL (0.2-1.2); Calc. Creatinine Clearance 0 mL/min (70-130); Carbon Dioxide 25 mmol/L (23-31); Chloride 101 mmol/L (98-107); Globulin 2.8 g/dL (2.4-3.5); Glucose 140 mg/dL (80-115); Potassium 4.3 mmol/L (3.5-5.1); Protein, Total 6.6 g/dL (5.8-8.1); Sodium 137 mmol/L (136-145)
[2021-11-04] MEDS ORDERED: Aspirin Chewable 81 MG TAB ONE (09:11)
[2021-11-04] MEDS ORDERED: Ondansetron PF 4 MG/2 ML Vial ONE (09:11)
[2021-11-04 09:41] LABS: INR-International Normal Ratio 1.1; Prothrombin Time 14.6 sec (12.0-14.7)
[2021-11-04 09:42] LABS: PTT 32.6 sec (22.9-36.1)
[2021-11-04] MEDS ORDERED: Nitroglycerin 2% Ointment 1 INCH/1 GM Packet ONE (10:26)
[2021-11-04 10:55] LABS: Bilirubin Negative (Negative); Blood, Urine 2+ (Negative); Clarity Turbid (Clear); Glucose, Urine (Dipstick) Greater than 1000 mg/dL (Negative); Ketone, Urine 40 mg/dL (Negative); Leukocyte 500 Leu/uL (Negative); Nitrite 2+ (Negative); Protein, Urine (Dipstick) 20 mg/dL (Neg-Trace); Specific Gravity, Urine 1.019 (1.002-1.036); WBC/HPF Greater than 50 HPF (0-3)
[2021-11-04 11:18] LABS: Bacteria/HPF 3+ HPF (None Seen)
[2021-11-04] MEDS ORDERED: Ondansetron PF 4 MG/2 ML Vial IVP PRN (11:21)
[2021-11-04] MEDS ORDERED: Acetaminophen 325 MG TAB PO PRN (11:21)
[2021-11-04] MEDS ORDERED: Dextrose 5% in Water 1,000 ML IV PRN (11:21)
[2021-11-04] MEDS ORDERED: Dextrose 50% Abboject 50 ML SYRINGE SLOW IVP PRN (11:21)
[2021-11-04] MEDS ORDERED: Nitroglycerin 0.4 MG TAB (25 Tab Bottle) SL PRN (11:21)
[2021-11-04] MEDS ORDERED: HumaLOG 300 UNITS/3 ML VIAL SC PRN ×2 (11:21)
[2021-11-04] MEDS ORDERED: Sodium Chloride 0.9% 1,000 ML IV SCH (11:30)
[2021-11-04] MEDS ORDERED: Pantoprazole 40 MG VIAL ONE (12:37)
[2021-11-04 12:43] VITALS: BMI 28.3
[2021-11-04] MEDS ORDERED: Pantoprazole 40 MG VIAL IVP SCH (14:00)
[2021-11-04 14:01] LABS: SARS-CoV-2 NAA Rapid Test Not Detected (NotDetected)
[2021-11-04 14:22] LABS: Troponin I 0.028 ng/mL (< 0.028)
[2021-11-04] MEDS: cefTRIAXone\\ROCEPHIN 1 GM in Sodium Chloride 0.9% 100 ML IVPB SCH (15:51)
[2021-11-04] MEDS: Carvedilol 6.25 MG TAB PO SCH (15:51)
[2021-11-04] MEDS ORDERED: Furosemide 40 MG/4 ML VIAL SLOW IVP SCH (16:30)
[2021-11-04] MEDS: Arformoterol 15 MCG/2 ML NEB NEB SCH (18:47)
[2021-11-04] MEDS: Budesonide 0.5 MG/2 ML NEB NEB SCH (18:49)
[2021-11-04] MEDS: Docusate 100 MG CAP PO SCH (20:09)
[2021-11-04] MEDS: Sacubitril 49 MG/Valsartan 51 MG TABLET PO SCH (20:09)
[2021-11-04] MEDS ORDERED: Atorvastatin Calcium 40 MG TAB PO SCH (21:00)
[2021-11-04] MEDS ORDERED: Polyethylene Glycol 3350 17 GM Packet PO SCH (21:00)
[2021-11-05 04:57] LABS: #Eosinphils 0.2 thou/uL (0.0-0.7); #Lymphocytes 1.5 thou/uL (1.20-3.40); #Monocytes 0.5 thou/uL (0.11-0.59); #Neutrophils 4.6 thou/uL (1.40-6.50); %Basophils 0.6 % (0.0-1.0); %Eosinophils 2.2 % (0.0-10.0); %Lymphocytes 22.6 % (21.0-51.0); %Monocytes 7.5 % (0.0-10.0); %Neutrophils 67.1 % (42.0-75.0); Hemoglobin 12.7 g/dL (12.0-16.0); Mean Corpuscular HGB CONC 31.2 g/dL (32.0-36.0); Mean Corpuscular Hemoglobin 29.5 pg (27.0-31.0); Mean Corpuscular Volume 94.4 fL (78.0-98.0); Mean Platelet Volume 6.8 fL (7.4-10.4); Platelet Count 194 thou/uL (130-400); RBC Distribution Width 13.6 % (11.5-14.5); White Blood Cell (WBC) Count 6.8 thou/uL (4.8-10.8)
[2021-11-05 05:18] LABS: Anion Gap 10 mmol/L (10-20); BUN (Urea Nitrogen) 10 mg/dL (9.8-20.1); Calc. Creatinine Clearance 89 mL/min (70-130); Calcium 8.6 mg/dL (7.8-10.44); Carbon Dioxide 31 mmol/L (23-31); Chloride 101 mmol/L (98-107); Glucose 116 mg/dL (80-115); Potassium 3.6 mmol/L (3.5-5.1); Sodium 138 mmol/L (136-145)
[2021-11-05] MEDS: Budesonide 0.5 MG/2 ML NEB NEB SCH (06:34)
[2021-11-05] MEDS: Arformoterol 15 MCG/2 ML NEB NEB SCH (06:34)
[2021-11-05] MEDS ORDERED: Aspirin Chewable 81 MG TAB PO SCH (09:00)
[2021-11-05] MEDS ORDERED: Spironolactone 25 MG TAB PO SCH (09:00)
[2021-11-05] MEDS ORDERED: Aspirin 81 mg Enteric Coated Tablet PO SCH (09:00)
[2021-11-05] MEDS ORDERED: Bupropion 150 MG SR TAB PO SCH (09:00)
[2021-11-05] MEDS ORDERED: Escitalopram Oxalate 10 mg Tablet PO SCH (09:00)
[2021-11-05] MEDS ORDERED: Enoxaparin Sodium 40 MG/0.4 ML SYRINGE SC SCH (09:00)
[2021-11-05] MEDS ORDERED: Clopidogrel Bisulfate 75 MG TAB PO SCH (09:00)
[2021-11-05] MEDS: Carvedilol 6.25 MG TAB PO SCH (09:21)
[2021-11-05] MEDS: Sacubitril 49 MG/Valsartan 51 MG TABLET PO SCH (09:23)
[2021-11-05] MEDS: Docusate 100 MG CAP PO SCH (09:23)
[2021-11-05] MEDS ORDERED: Lantus 1000 UNITS/10 ML VIAL SC SCH ×2 (12:15→21:00)
[2021-11-05] MEDS: cefTRIAXone\\ROCEPHIN 1 GM in Sodium Chloride 0.9% 100 ML IVPB SCH (14:12)
[2021-11-05 15:52] VITALS: BP 142/75; TEMP 99.6
== END 2021-11-05 16:00 | disposition home or self-care (01) ==
LOC: ERS 07:49 → EDUNIT# 07:49 → ERHOLD 10:41 → 2SW 13:42
PROVIDERS: ADMIT Family Medicine; ATTEND Family Medicine
DX: I11.0 Hypertensive heart disease with heart failure (principal); I50.43 Acute on chronic combined systolic (congestive) and diastolic (congestive) heart failure; N30.00 Acute cystitis without hematuria; R11.2 Nausea with vomiting, unspecified; R07.89 Other chest pain; I25.10 Atherosclerotic heart disease of native coronary artery without angina pectoris; I25.2 Old myocardial infarction; R79.89 Other specified abnormal findings of blood chemistry; E78.5 Hyperlipidemia, unspecified; E11.51 Type 2 diabetes mellitus with diabetic peripheral angiopathy without gangrene; J44.9 Chronic obstructive pulmonary disease, unspecified; F17.210 Nicotine dependence, cigarettes, uncomplicated; K59.00 Constipation, unspecified; R39.15 Urgency of urination; I25.5 Ischemic cardiomyopathy; J96.01 Acute respiratory failure with hypoxia; Z79.02 Long term (current) use of antithrombotics/antiplatelets; Z79.4 Long term (current) use of insulin; Z79.82 Long term (current) use of aspirin; Z79.84 Long term (current) use of oral hypoglycemic drugs; Z79.899 Other long term (current) drug therapy; Z95.5 Presence of coronary angioplasty implant and graft; Z20.822 Contact with and (suspected) exposure to COVID-19
CPT/HCPCS: 36415; 36416; 71045; 80048; 80053; 81003; 81015; 83690; 83880; 84484; 85025; 85610; 85730; 87077; 87086; 87186; 93005; 93306; 94640; 96372; 96374; 96375; C9113; G0378; J0696; J1650; J1815; J1940; J2405; J3490; J7050; J7620; J7626; U0002

== ENCOUNTER 2022-10-01 10:51 | Emergency (ER) | payer BC ==
[2022-10-01] MEDS ORDERED: Morphine 4 MG/ML VIAL ONE (12:09)
[2022-10-01] MEDS ORDERED: Ondansetron ODT 4 MG TAB ONE (12:09)
== END 2022-10-01 14:28 | disposition home or self-care (01) ==
LOC: ERS 10:51
DX: M25.511 Pain in right shoulder (principal); E11.9 Type 2 diabetes mellitus without complications; J44.9 Chronic obstructive pulmonary disease, unspecified; F17.210 Nicotine dependence, cigarettes, uncomplicated
CPT/HCPCS: 96372; J2270; Q0162

== ENCOUNTER 2022-10-20 14:27 | Emergency (ER) | payer BC ==
[2022-10-20 16:09] LABS: #Eosinphils 0.1 thou/uL (0.0-0.7); #Lymphocytes 1.2 thou/uL (1.20-3.40); #Monocytes 0.4 thou/uL (0.11-0.59); #Neutrophils 5.2 thou/uL (1.40-6.50); %Basophils 0.1 % (0.0-1.0); %Eosinophils 1.1 % (0.0-10.0); %Lymphocytes 16.9 % (21.0-51.0); %Monocytes 6.1 % (0.0-10.0); %Neutrophils 75.7 % (42.0-75.0); Hemoglobin 15.3 g/dL (12.0-16.0); Mean Corpuscular HGB CONC 32.1 g/dL (32.0-36.0); Mean Corpuscular Hemoglobin 30.1 pg (27.0-31.0); Mean Corpuscular Volume 93.6 fl (78.0-98.0); Mean Platelet Volume 7.3 fL (7.4-10.4); Platelet Count 237 10x3/uL (130-400); RBC Distribution Width 13.5 % (11.5-14.5); White Blood Cell (WBC) Count 6.8 10x3/uL (4.8-10.8)
[2022-10-20 16:28] LABS: ALT (SGPT) 16 U/L (8-55); AST (SGOT) 17 U/L (5-34); Albumin 4.5 g/dL (3.4-4.8); Alkaline Phosphatase 129 U/L (40-110); Anion Gap 19 mmol/L (10-20); BUN (Urea Nitrogen) 16 mg/dL (9.8-20.1); Bilirubin, Total 1.1 mg/dL (0.2-1.2); Calc. Creatinine Clearance 0 mL/min (70-130); Calcium 9.8 mg/dL (7.8-10.44); Carbon Dioxide 25 mmol/L (23-31); Chloride 92 mmol/L (98-107); Estimated GFR 59; Globulin 2.7 g/dL (2.4-3.5); Glucose 129 mg/dL (80-115); Potassium 4.6 mmol/L (3.5-5.1); Protein, Total 7.2 g/dL (5.8-8.1); Sodium 131 mmol/L (136-145)
[2022-10-20 17:20] LABS: SARS-CoV-2 NAA Rapid Test Not Detected (NotDetected)
[2022-10-20] MEDS ORDERED: Ketorolac Tromethamine 30 MG/ML VIAL ONE (17:32)
== END 2022-10-20 17:55 | disposition home or self-care (01) ==
LOC: ERS 14:27
DX: B34.9 Viral infection, unspecified (principal); M79.601 Pain in right arm; J44.1 Chronic obstructive pulmonary disease with (acute) exacerbation; E11.9 Type 2 diabetes mellitus without complications; I25.2 Old myocardial infarction; F17.210 Nicotine dependence, cigarettes, uncomplicated; Z20.822 Contact with and (suspected) exposure to COVID-19
CPT/HCPCS: 36415; 71045; 80053; 83880; 84484; 85025; 93005; 94760; 96372; J1885

== ENCOUNTER 2023-11-02 14:38 | Inpatient (IN) | payer BC, MEDICARE ==
[~2023-11-02 14:38] MED LIST: Iopamidol-370 76% 500 ML MDV (1 ML CHARGE) ONE
[2023-11-02 14:55] LABS: #Basophils 0.1 thou/uL (0.0-0.2); #Eosinphils 0.1 thou/uL (0.0-0.7); #Monocytes 0.7 thou/uL (0.11-0.59); #Neutrophils 7.3 thou/uL (1.40-6.50); %Basophils 0.6 % (0.0-1.0); %Eosinophils 1.2 % (0.0-10.0); %Lymphocytes 16.9 % (21.0-51.0); %Monocytes 6.7 % (0.0-10.0); %Neutrophils 73.8 % (42.0-75.0); Hematocrit 47.7 % (36.0-47.0); Hemoglobin 16.1 g/dL (12.0-16.0); Mean Corpuscular HGB CONC 33.8 g/dL (32.0-36.0); Mean Corpuscular Volume 94.8 fl (78.0-98.0); Mean Platelet Volume 10.1 fL (7.4-10.4); Platelet Count 175 10x3/uL (130-400); RBC Distribution Width 13.4 % (11.5-14.5); Red Blood Cell (RBC) Count 5.03 mill/uL (4.20-5.40); White Blood Cell (WBC) Count 9.9 10x3/uL (4.8-10.8)
[2023-11-02 15:04] LABS: INR-International Normal Ratio 0.9; Prothrombin Time 12.6 sec (12.0-14.7)
[2023-11-02 15:05] LABS: PTT 24.9 sec (22.9-36.1)
[2023-11-02 15:16] LABS: Troponin I Less than 0.010 ng/mL (< 0.028)
[2023-11-02 15:20] LABS: ALT (SGPT) 18 U/L (8-55); AST (SGOT) 16 U/L (5-34); Albumin 4.1 g/dL (3.4-4.8); Alkaline Phosphatase 127 U/L (40-110); Anion Gap 15 mmol/L (10-20); BUN (Urea Nitrogen) 18 mg/dL (9.8-20.1); Bilirubin, Total 0.7 mg/dL (0.2-1.2); Calc. Creatinine Clearance 0 mL/min (70-130); Calcium 9.3 mg/dL (7.8-10.44); Carbon Dioxide 27 mmol/L (23-31); Chloride 97 mmol/L (98-107); Estimated GFR 47; Globulin 2.6 g/dL (2.4-3.5); Glucose 260 mg/dL (80-115); Potassium 4.4 mmol/L (3.5-5.1); Protein, Total 6.7 g/dL (5.8-8.1); Sodium 135 mmol/L (136-145)
[2023-11-02 15:36] LABS: Acetaminophen Less than 10 mcg/mL (10.0-30.0); Alcohol Less than 10.0 mg/dL (Less than 10); Salicylate Less than 8.0 mg/dL (15.0-30.0)
[2023-11-02] MEDS ORDERED: Rocuronium Bromide 10 MG/ML (10ML VIAL) ONE (15:38)
[2023-11-02 15:43] LABS: Actual Bicarbonate (HCO3v) 28.1 mEq/L (22-28); Base Excess 1.1 mEq/L (-2.0 to +3.0); Calcium, Ionized (venous) 1.07 mmol/L (1.16-1.32); Chloride (VBG) 93 mmol/L (98-106); Hematocrit-VBG 49 % (36.0-47.0); Hemoglobin (Hb) 16.6 g/dL (11.7-16.1); Potassium (VBG) 4.46 mmol/L (3.70-5.30); Sodium 132 mmol/L (133-146); pH (venous) 7.342 (7.32-7.43)
[2023-11-02] MEDS ORDERED: Fentanyl BOLUS 250 ML IVPB PRN ×2 (15:45→19:30)
[2023-11-02] MEDS ORDERED: Fentanyl CADD 100 ML IV SCH ×2 (15:45→19:30)
[2023-11-02] MEDS ORDERED: Propofol 1,000 MG/100 ML VIAL IV ONE (15:50)
[2023-11-02 15:56] LABS: Actual Bicarbonate (HCO3a) 25.6 mEq/L (22-28); Analyzer IN Cardio ER; Base Excess (BEa) 1.6 mEq/L (-2.0 to +3.0); CO2 Tension 38.6 mmHg (35.0-45.0); Calcium, Ionized (arterial) 1.14 mmol/L (1.12-1.30); Carboxyhemoglobin (COHb) 7.4 gm% (0.0-3.0); Hematocrit-ABG 49 % (36.0-47.0); Hemoglobin (Hb) 16.5 g/dL (12.0-16.0); O2 Tension (PaO2), arterial 516.9 mmHg (> 80.0); Potassium - ABG Lab 4.51 mmol/L (3.70-5.30)
[2023-11-02 15:59] LABS: Puncture Site RRA
[2023-11-02] MEDS ORDERED: Rocuronium Bromide 10 MG/ML (10ML VIAL) IVP SCH (16:00)
[2023-11-02 16:10] LABS: Amphetamine Not Detected (NotDetected); Barbiturates Screen Not Detected (NotDetected); Benzodiazepine Screen Not Detected (NotDetected); Cocaine Metabolite Screen Not Detected (NotDetected); Methadone Not Detected (NotDetected); Methamphetamine Not Detected (NotDetected); Opiate Screen Not Detected (NotDetected); Oxycodone Screen Not Detected (NotDetected); Phencyclidine (PCP) Not Detected (NotDetected); THC/Cannabinoid Screen Not Detected (NotDetected); Tricyclic Screen Not Detected (NotDetected)
[2023-11-02] MEDS ORDERED: Midazolam HCl 5 mg/ml Vial ONE (17:25)
[2023-11-02] MEDS ORDERED: Aspirin 300 MG Suppository ONE (17:27)
[2023-11-02] MEDS ORDERED: Dextrose 5% in Water 1,000 ML IV PRN (18:10)
[2023-11-02] MEDS ORDERED: hydrALAZINE 20 MG/ML VIAL SLOW IVP PRN (18:10)
[2023-11-02] MEDS ORDERED: Electrolyte Replacement Protocol 1 EACH IVPB SCH (18:10)
[2023-11-02] MEDS ORDERED: Labetalol HCl 100 MG/20 ML VIAL SLOW IVP PRN (18:10)
[2023-11-02] MEDS ORDERED: Glucagon 1 MG/ML KIT IM PRN (18:10)
[2023-11-02] MEDS ORDERED: Insulin Regular 300 UNITS/3 ML VIAL SC PRN (18:10)
[2023-11-02] MEDS ORDERED: Dextrose 50% Abboject 50 ML SYRINGE SLOW IVP PRN (18:10)
[2023-11-02] MEDS ORDERED: Ventilator Sedation Protocol 1 EACH FS SCH (18:15)
[2023-11-02] MEDS: Ipratropium/Albuterol 3 ML NEB NEB SCH (19:09)
[2023-11-02] MEDS ORDERED: HumaLOG 300 UNITS/3 ML VIAL SC PRN (19:22)
[2023-11-02] MEDS ORDERED: Morphine 2 MG/ML VIAL SLOW IVP PRN (19:30)
[2023-11-02] MEDS ORDERED: DISCONTINUE PREVIOUS NARCOTIC PAIN MEDICATIONS AND BENZODIAZEPINES FS SCH (19:30)
[2023-11-02] MEDS ORDERED: Propofol BOLUS 1,000 MG/100 ML VIAL IV PRN (19:30)
[2023-11-02] MEDS ORDERED: Lorazepam 2 MG/ML VIAL SLOW IVP PRN (19:30)
[2023-11-02] MEDS ORDERED: Propofol 1,000 MG/100 ML VIAL IV PRN (19:30)
[2023-11-02] MEDS: Sodium Chloride 0.9% 1,000 ML IV SCH (20:30)
[2023-11-02] MEDS ORDERED: Famotidine/PF 20 mg/2ml Vial SLOW IVP SCH (21:00)
[2023-11-02] MEDS: Nicotine 14 MG PATCH TD SCH (23:00)
[2023-11-02] MEDS: Atorvastatin Calcium 40 MG TAB PER TUBE SCH (23:00)
[2023-11-03] MEDS: Ipratropium/Albuterol 3 ML NEB NEB SCH ×2 (02:36→07:45)
[2023-11-03 04:09] LABS: #Monocytes 0.9 thou/uL (0.11-0.59); #Neutrophils 10.7 thou/uL (1.40-6.50); %Basophils 0.3 % (0.0-1.0); %Eosinophils 0.3 % (0.0-10.0); %Lymphocytes 10.7 % (21.0-51.0); %Monocytes 7.1 % (0.0-10.0); %Neutrophils 81.1 % (42.0-75.0); Hematocrit 48.5 % (36.0-47.0); Mean Platelet Volume 10.3 fL (7.4-10.4); Platelet Count 159 10x3/uL (130-400); RBC Distribution Width 13.5 % (11.5-14.5); Red Blood Cell (RBC) Count 5.16 mill/uL (4.20-5.40); White Blood Cell (WBC) Count 13.2 10x3/uL (4.8-10.8)
[2023-11-03 04:17] LABS: Hemoglobin A1c 8.1 % (4.0-6.0)
[2023-11-03 04:33] LABS: Anion Gap 15 mmol/L (10-20); BUN (Urea Nitrogen) 17 mg/dL (9.8-20.1); Calc. Creatinine Clearance 47 mL/min (70-130); Calcium 9.3 mg/dL (7.8-10.44); Carbon Dioxide 24 mmol/L (23-31); Cardiac Risk 3.3 (Less than 4.5); Chloride 102 mmol/L (98-107); Cholesterol 183 mg/dl (< 200 Desired); Estimated GFR 53; Glucose 223 mg/dL (80-115); HDL Cholesterol 56 mg/dL (>60 Neg Risk); LDL Cholesterol, Calculated 99 mg/dL; Sodium 137 mmol/L (136-145); Triglycerides 142 mg/dL (Less than 150)
[2023-11-03] MEDS: Mometasone 200 MCG/Formoterol 5 MCG 120 PUFF INHALER INH SCH ×2 (07:45→22:33)
[2023-11-03] MEDS: Sodium Chloride 0.9% 1,000 ML IV SCH (08:49)
[2023-11-03] MEDS: Clopidogrel Bisulfate 75 MG TAB PO SCH (08:55)
[2023-11-03] MEDS: Escitalopram Oxalate 10 mg Tablet PO SCH (08:55)
[2023-11-03] MEDS: Insulin Glargine 30 UNITS/0.3 ML VIAL SC SCH (09:09)
[2023-11-03] MEDS ORDERED: Ipratropium/Albuterol 3 ML NEB NEB PRN (09:50)
[2023-11-03] MEDS: Aspirin 300 MG Suppository PR SCH (18:17)
[2023-11-03] MEDS: Famotidine/PF 20 mg/2ml Vial SLOW IVP SCH (21:30)
[2023-11-03] MEDS: Nicotine 14 MG PATCH TD SCH (21:30)
[2023-11-03] MEDS: Atorvastatin Calcium 40 MG TAB PER TUBE SCH (22:37)
[2023-11-04] MEDS: Sodium Chloride 0.9% 1,000 ML IV SCH ×2 (00:02→16:28)
[2023-11-04 06:27] LABS: #Basophils 0.1 thou/uL (0.0-0.2); #Monocytes 1.3 thou/uL (0.11-0.59); #Neutrophils 22.2 thou/uL (1.40-6.50); %Basophils 0.2 % (0.0-1.0); %Lymphocytes 1.7 % (21.0-51.0); %Monocytes 5.2 % (0.0-10.0); %Neutrophils 92.3 % (42.0-75.0); Hematocrit 46.9 % (36.0-47.0); Mean Corpuscular Volume 96.9 fl (78.0-98.0); Mean Platelet Volume 10.1 fL (7.4-10.4); Platelet Count 146 10x3/uL (130-400); RBC Distribution Width 13.9 % (11.5-14.5); Red Blood Cell (RBC) Count 4.84 mill/uL (4.20-5.40); White Blood Cell (WBC) Count 24.1 10x3/uL (4.8-10.8)
[2023-11-04 06:56] LABS: Anion Gap 19 mmol/L (10-20); BUN (Urea Nitrogen) 20 mg/dL (9.8-20.1); Calc. Creatinine Clearance 69 mL/min (70-130); Calcium 9.1 mg/dL (7.8-10.44); Carbon Dioxide 18 mmol/L (23-31); Chloride 105 mmol/L (98-107); Estimated GFR 82; Glucose 129 mg/dL (80-115); Potassium 3.7 mmol/L (3.5-5.1); Sodium 138 mmol/L (136-145)
[2023-11-04] MEDS: Mometasone 200 MCG/Formoterol 5 MCG 120 PUFF INHALER INH SCH ×2 (07:25→18:39)
[2023-11-04] MEDS: Insulin Glargine 30 UNITS/0.3 ML VIAL SC SCH (08:17)
[2023-11-04] MEDS: Acetaminophen 650 MG Suppository PR PRN (08:20)
[2023-11-04] MEDS ORDERED: Sodium Chloride 0.9% 1,000 ML IV SCH (10:30)
[2023-11-04] MEDS: Clopidogrel Bisulfate 75 MG TAB PO SCH (10:59)
[2023-11-04] MEDS: Escitalopram Oxalate 10 mg Tablet PO SCH (10:59)
[2023-11-04] MEDS: Aspirin 300 MG Suppository PR SCH (16:28)
[2023-11-04] MEDS: Atorvastatin Calcium 40 MG TAB PER TUBE SCH (19:43)
[2023-11-04] MEDS: Famotidine/PF 20 mg/2ml Vial SLOW IVP SCH (22:02)
[2023-11-04] MEDS: Nicotine 14 MG PATCH TD SCH (22:05)
[2023-11-05 04:52] LABS: #Basophils 0.1 thou/uL (0.0-0.2); #Monocytes 0.5 thou/uL (0.11-0.59); #Neutrophils 11.9 thou/uL (1.40-6.50); %Basophils 0.5 % (0.0-1.0); %Eosinophils 0.1 % (0.0-10.0); %Lymphocytes 5.4 % (21.0-51.0); %Monocytes 3.9 % (0.0-10.0); %Neutrophils 89.7 % (42.0-75.0); Hematocrit 48.6 % (36.0-47.0); Hemoglobin 14.7 g/dL (12.0-16.0); Mean Corpuscular HGB CONC 30.2 g/dL (32.0-36.0); Mean Corpuscular Hemoglobin 31.8 pg (27.0-31.0); Mean Platelet Volume 10.1 fL (7.4-10.4); Platelet Count 125 10x3/uL (130-400); RBC Distribution Width 13.9 % (11.5-14.5); Red Blood Cell (RBC) Count 4.62 mill/uL (4.20-5.40); White Blood Cell (WBC) Count 13.3 10x3/uL (4.8-10.8)
[2023-11-05 04:59] LABS: Mean Corpuscular Volume 105.2 fl (78.0-98.0)
[2023-11-05 05:07] LABS: Anion Gap 18 mmol/L (10-20); BUN (Urea Nitrogen) 25 mg/dL (9.8-20.1); Calc. Creatinine Clearance 73 mL/min (70-130); Calcium 8.9 mg/dL (7.8-10.44); Carbon Dioxide 14 mmol/L (23-31); Chloride 112 mmol/L (98-107); Estimated GFR 88; Glucose 88 mg/dL (80-115); Potassium 3.8 mmol/L (3.5-5.1); Sodium 140 mmol/L (136-145)
[2023-11-05] MEDS: Sodium Chloride 0.9% 1,000 ML IV SCH (05:46)
[2023-11-05] MEDS: Mometasone 200 MCG/Formoterol 5 MCG 120 PUFF INHALER INH SCH (07:04)
[2023-11-05] MEDS: Clopidogrel Bisulfate 75 MG TAB PO SCH (09:08)
[2023-11-05] MEDS: Escitalopram Oxalate 10 mg Tablet PO SCH (09:08)
[2023-11-05] MEDS: Insulin Glargine 30 UNITS/0.3 ML VIAL SC SCH (09:08)
[2023-11-05] MEDS: Dextrose 5 %-0.45 % NaCl 1,000 ML IV SCH (11:19)
[2023-11-05] MEDS ORDERED: Nicotine 14 MG PATCH TD SCH ×2 (11:30→12:00)
[2023-11-05] MEDS ORDERED: Budesonide 0.25 MG/2 ML NEB INH SCH (12:00)
[2023-11-05] MEDS: Ipratropium/Albuterol 3 ML NEB NEB SCH ×3 (12:51→23:26)
[2023-11-05] MEDS: Aspirin 300 MG Suppository PR SCH (16:36)
[2023-11-05] MEDS: Budesonide 0.25 MG/2 ML NEB INH SCH (19:08)
[2023-11-05] MEDS: Famotidine/PF 20 mg/2ml Vial SLOW IVP SCH (22:01)
[2023-11-05] MEDS: Atorvastatin Calcium 40 MG TAB PER TUBE SCH (22:01)
[2023-11-06] MEDS: Dextrose 5 %-0.45 % NaCl 1,000 ML IV SCH ×2 (00:42→15:43)
[2023-11-06 06:39] LABS: #Monocytes 0.5 thou/uL (0.11-0.59); #Neutrophils 8.7 thou/uL (1.40-6.50); %Basophils 0.3 % (0.0-1.0); %Lymphocytes 6.9 % (21.0-51.0); %Neutrophils 87.6 % (42.0-75.0); Hematocrit 41.6 % (36.0-47.0); Hemoglobin 13.5 g/dL (12.0-16.0); Mean Corpuscular HGB CONC 32.5 g/dL (32.0-36.0); Mean Corpuscular Hemoglobin 31.3 pg (27.0-31.0); Mean Corpuscular Volume 96.5 fl (78.0-98.0); Platelet Count 143 10x3/uL (130-400); RBC Distribution Width 13.5 % (11.5-14.5); Red Blood Cell (RBC) Count 4.31 mill/uL (4.20-5.40); White Blood Cell (WBC) Count 9.9 10x3/uL (4.8-10.8)
[2023-11-06 07:02] LABS: Anion Gap 17 mmol/L (10-20); BUN (Urea Nitrogen) 21 mg/dL (9.8-20.1); Calc. Creatinine Clearance 72 mL/min (70-130); Calcium 9.1 mg/dL (7.8-10.44); Carbon Dioxide 17 mmol/L (23-31); Chloride 110 mmol/L (98-107); Estimated GFR 86; Glucose 181 mg/dL (80-115); Potassium 3.7 mmol/L (3.5-5.1); Sodium 140 mmol/L (136-145)
[2023-11-06] MEDS: Budesonide 0.25 MG/2 ML NEB INH SCH ×2 (07:54→18:35)
[2023-11-06] MEDS: Ipratropium/Albuterol 3 ML NEB NEB SCH ×4 (07:55→23:58)
[2023-11-06] MEDS: Insulin Glargine 30 UNITS/0.3 ML VIAL SC SCH (15:03)
[2023-11-06] MEDS: Escitalopram Oxalate 10 mg Tablet PO SCH (15:03)
[2023-11-06] MEDS: Clopidogrel Bisulfate 75 MG TAB PO SCH (15:03)
[2023-11-06] MEDS: Nicotine 14 MG PATCH TD SCH (15:49)
[2023-11-06] MEDS: Aspirin 300 MG Suppository PR SCH (20:01)
[2023-11-07] MEDS: Atorvastatin Calcium 40 MG TAB PER TUBE SCH ×2 (04:40→21:42)
[2023-11-07] MEDS: Carvedilol 6.25 MG TAB PO SCH ×3 (04:41→21:42)
[2023-11-07] MEDS: Famotidine/PF 20 mg/2ml Vial SLOW IVP SCH ×2 (04:45→21:52)
[2023-11-07] MEDS: Dextrose 5 %-0.45 % NaCl 1,000 ML IV SCH ×2 (04:45→19:37)
[2023-11-07 06:27] LABS: Anion Gap 13 mmol/L (10-20); BUN (Urea Nitrogen) 18 mg/dL (9.8-20.1); Calc. Creatinine Clearance 83 mL/min (70-130); Calcium 8.9 mg/dL (7.8-10.44); Carbon Dioxide 22 mmol/L (23-31); Chloride 107 mmol/L (98-107); Estimated GFR 95; Glucose 168 mg/dL (80-115); Magnesium 1.6 mg/dL (1.6-2.6); Potassium 3.5 mmol/L (3.5-5.1); Sodium 138 mmol/L (136-145)
[2023-11-07] MEDS: Ipratropium/Albuterol 3 ML NEB NEB SCH ×4 (07:56→23:07)
[2023-11-07] MEDS: Budesonide 0.25 MG/2 ML NEB INH SCH ×2 (07:59→18:18)
[2023-11-07] MEDS ORDERED: Magnesium 2 GM/50 ML(in water) 2 GM in Premix 1 BAG IVPB SCH (08:00)
[2023-11-07 11:09] VITALS: BMI 27.7
[2023-11-07] MEDS: Potassium Chloride 20 MEQ TAB PO SCH ×2 (11:29→14:31)
[2023-11-07] MEDS: Escitalopram Oxalate 10 mg Tablet PO SCH (11:33)
[2023-11-07] MEDS: Clopidogrel Bisulfate 75 MG TAB PO SCH (11:33)
[2023-11-07] MEDS: Insulin Glargine 30 UNITS/0.3 ML VIAL SC SCH (11:33)
[2023-11-07] MEDS: Potassium Bicarbonate/Cit Ac 20 MEQ TAB PER TUBE SCH ×2 (11:52→13:21)
[2023-11-07] MEDS: Nicotine 14 MG PATCH TD SCH (14:17)
[2023-11-07] MEDS: Potassium Chloride 20 MEQ in Premix 1 BAG IVPB SCH ×2 (14:18→17:07)
[2023-11-07] MEDS ORDERED: Ondansetron PF 4 MG/2 ML Vial IVP PRN (14:47)
[2023-11-07] MEDS ORDERED: Ondansetron PF 4 MG/2 ML Vial IVP SCH (15:00)
[2023-11-07] MEDS: Aspirin 300 MG Suppository PR SCH (17:08)
[2023-11-08 05:34] LABS: Anion Gap 12 mmol/L (10-20); BUN (Urea Nitrogen) 17 mg/dL (9.8-20.1); Calc. Creatinine Clearance 92 mL/min (70-130); Calcium 8.4 mg/dL (7.8-10.44); Carbon Dioxide 22 mmol/L (23-31); Chloride 106 mmol/L (98-107); Estimated GFR 98; Glucose 155 mg/dL (80-115); Sodium 136 mmol/L (136-145)
[2023-11-08] MEDS: Dextrose 5 %-0.45 % NaCl 1,000 ML IV SCH ×2 (06:07→21:59)
[2023-11-08] MEDS: Ipratropium/Albuterol 3 ML NEB NEB SCH ×4 (07:24→23:21)
[2023-11-08] MEDS: Budesonide 0.25 MG/2 ML NEB INH SCH ×2 (07:24→19:32)
[2023-11-08] MEDS ORDERED: Vasopressin 20 UNITS/ML VIAL ONE (09:40)
[2023-11-08] MEDS ORDERED: Midazolam HCl 2 mg/2 ml Vial ONE (10:10)
[2023-11-08] MEDS ORDERED: CEFAZOLIN 2 GM VIAL ONE (10:10)
[2023-11-08] MEDS ORDERED: Ketamine In 0.9 % NaCl 50 MG/5 ML SYRINGE ONE (10:10)
[2023-11-08] MEDS ORDERED: Sodium Chloride 0.9% 100 ML ONE (10:11)
[2023-11-08] MEDS ORDERED: Lidocaine 1% PF 5 ML VIAL ONE (10:11)
[2023-11-08] MEDS ORDERED: PROPOFOL 20 ML ONE (10:12)
[2023-11-08] MEDS ORDERED: Esmolol 100 MG/10 ML VIAL ONE (10:30)
[2023-11-08] MEDS ORDERED: Aspirin Chewable 81 MG TAB PER TUBE SCH (13:30)
[2023-11-08] MEDS ORDERED: Carvedilol 6.25 MG TAB PER TUBE SCH (13:45)
[2023-11-08] MEDS ORDERED: Clopidogrel Bisulfate 75 MG TAB PER TUBE SCH (13:45)
[2023-11-08] MEDS: Insulin Glargine 30 UNITS/0.3 ML VIAL SC SCH (14:25)
[2023-11-08] MEDS: Nicotine 14 MG PATCH TD SCH (14:29)
[2023-11-08] MEDS: Escitalopram Oxalate 10 mg Tablet PO SCH (15:23)
[2023-11-08] MEDS: Clopidogrel Bisulfate 75 MG TAB PO SCH (15:23)
[2023-11-08] MEDS: Carvedilol 6.25 MG TAB PO SCH (15:24)
[2023-11-08] MEDS: Atorvastatin Calcium 40 MG TAB PER TUBE SCH (22:00)
[2023-11-08] MEDS: Carvedilol 6.25 MG TAB PER TUBE SCH (22:00)
[2023-11-08] MEDS: Famotidine/PF 20 mg/2ml Vial SLOW IVP SCH (22:00)
[2023-11-09 05:27] LABS: Anion Gap 12 mmol/L (10-20); BUN (Urea Nitrogen) 12 mg/dL (9.8-20.1); Calc. Creatinine Clearance 93 mL/min (70-130); Calcium 8.2 mg/dL (7.8-10.44); Carbon Dioxide 22 mmol/L (23-31); Chloride 102 mmol/L (98-107); Estimated GFR 98; Glucose 175 mg/dL (80-115); Potassium 3.8 mmol/L (3.5-5.1); Sodium 132 mmol/L (136-145)
[2023-11-09] MEDS: HumaLOG 300 UNITS/3 ML VIAL SC PRN ×2 (05:57→12:34)
[2023-11-09] MEDS: Ipratropium/Albuterol 3 ML NEB NEB SCH ×4 (06:16→23:49)
[2023-11-09] MEDS: Budesonide 0.25 MG/2 ML NEB INH SCH ×2 (06:26→18:42)
[2023-11-09] MEDS: Clopidogrel Bisulfate 75 MG TAB PER TUBE SCH (09:28)
[2023-11-09] MEDS: Carvedilol 6.25 MG TAB PER TUBE SCH ×2 (09:28→21:18)
[2023-11-09] MEDS: Aspirin Chewable 81 MG TAB PER TUBE SCH (09:28)
[2023-11-09] MEDS: Escitalopram Oxalate 10 mg Tablet PER TUBE SCH (09:29)
[2023-11-09] MEDS: Insulin Glargine 30 UNITS/0.3 ML VIAL SC SCH (09:29)
[2023-11-09] MEDS: Dextrose 5 %-0.45 % NaCl 1,000 ML IV SCH (09:31)
[2023-11-09] MEDS: Acetaminophen 650 MG Suppository PR PRN (11:54)
[2023-11-09] MEDS: Nicotine 14 MG PATCH TD SCH (11:55)
[2023-11-09] MEDS: Famotidine/PF 20 mg/2ml Vial SLOW IVP SCH (21:18)
[2023-11-09] MEDS: Atorvastatin Calcium 40 MG TAB PER TUBE SCH (21:18)
[2023-11-10 04:47] LABS: Anion Gap 11 mmol/L (10-20); BUN (Urea Nitrogen) 12 mg/dL (9.8-20.1); Calc. Creatinine Clearance 95 mL/min (70-130); Calcium 8.5 mg/dL (7.8-10.44); Carbon Dioxide 26 mmol/L (23-31); Chloride 100 mmol/L (98-107); Estimated GFR 98; Glucose 139 mg/dL (80-115); Potassium 3.6 mmol/L (3.5-5.1); Sodium 133 mmol/L (136-145)
[2023-11-10] MEDS: Budesonide 0.25 MG/2 ML NEB INH SCH ×2 (07:39→19:40)
[2023-11-10] MEDS: Ipratropium/Albuterol 3 ML NEB NEB SCH ×3 (07:41→19:39)
[2023-11-10] MEDS: Escitalopram Oxalate 10 mg Tablet PER TUBE SCH (10:07)
[2023-11-10] MEDS: Aspirin Chewable 81 MG TAB PER TUBE SCH (10:07)
[2023-11-10] MEDS: Carvedilol 6.25 MG TAB PER TUBE SCH ×2 (10:07→20:40)
[2023-11-10] MEDS: Clopidogrel Bisulfate 75 MG TAB PER TUBE SCH (10:08)
[2023-11-10] MEDS: Insulin Glargine 30 UNITS/0.3 ML VIAL SC SCH (10:08)
[2023-11-10] MEDS: Nicotine 14 MG PATCH TD SCH (14:39)
[2023-11-10] MEDS: Atorvastatin Calcium 40 MG TAB PER TUBE SCH (20:40)
[2023-11-10] MEDS: Famotidine/PF 20 mg/2ml Vial SLOW IVP SCH (20:40)
[2023-11-11] MEDS: Ipratropium/Albuterol 3 ML NEB NEB SCH ×4 (00:24→19:19)
[2023-11-11 05:21] LABS: Anion Gap 12 mmol/L (10-20); BUN (Urea Nitrogen) 18 mg/dL (9.8-20.1); Calc. Creatinine Clearance 83 mL/min (70-130); Calcium 8.7 mg/dL (7.8-10.44); Carbon Dioxide 26 mmol/L (23-31); Chloride 99 mmol/L (98-107); Estimated GFR 95; Glucose 180 mg/dL (80-115); Potassium 4.1 mmol/L (3.5-5.1); Sodium 133 mmol/L (136-145)
[2023-11-11] MEDS: HumaLOG 300 UNITS/3 ML VIAL SC PRN ×2 (05:50→12:35)
[2023-11-11 07:05] LABS: Magnesium 1.8 mg/dL (1.6-2.6)
[2023-11-11] MEDS ORDERED: Magnesium 2 GM/50 ML(in water) 2 GM in Premix 1 BAG IVPB SCH (08:00)
[2023-11-11] MEDS: Budesonide 0.25 MG/2 ML NEB INH SCH ×2 (08:19→19:20)
[2023-11-11] MEDS: Escitalopram Oxalate 10 mg Tablet PER TUBE SCH (09:49)
[2023-11-11] MEDS: Carvedilol 6.25 MG TAB PER TUBE SCH ×2 (09:49→19:57)
[2023-11-11] MEDS: Clopidogrel Bisulfate 75 MG TAB PER TUBE SCH (09:49)
[2023-11-11] MEDS: Aspirin Chewable 81 MG TAB PER TUBE SCH (09:49)
[2023-11-11] MEDS: Insulin Glargine 30 UNITS/0.3 ML VIAL SC SCH (09:50)
[2023-11-11] MEDS: Nicotine 14 MG PATCH TD SCH (12:35)
[2023-11-11] MEDS: Atorvastatin Calcium 40 MG TAB PER TUBE SCH (19:56)
[2023-11-11] MEDS: Famotidine/PF 20 mg/2ml Vial SLOW IVP SCH (19:57)
[2023-11-12] MEDS: Ipratropium/Albuterol 3 ML NEB NEB SCH ×3 (00:47→14:37)
[2023-11-12 04:52] LABS: Anion Gap 11 mmol/L (10-20); BUN (Urea Nitrogen) 21 mg/dL (9.8-20.1); Calc. Creatinine Clearance 86 mL/min (70-130); Calcium 8.7 mg/dL (7.8-10.44); Carbon Dioxide 26 mmol/L (23-31); Chloride 99 mmol/L (98-107); Estimated GFR 96; Glucose 192 mg/dL (80-115); Potassium 4.4 mmol/L (3.5-5.1); Sodium 132 mmol/L (136-145)
[2023-11-12] MEDS: HumaLOG 300 UNITS/3 ML VIAL SC PRN (05:42)
[2023-11-12] MEDS: Budesonide 0.25 MG/2 ML NEB INH SCH (07:16)
[2023-11-12] MEDS: Insulin Glargine 30 UNITS/0.3 ML VIAL SC SCH (09:25)
[2023-11-12] MEDS: Escitalopram Oxalate 10 mg Tablet PER TUBE SCH (09:26)
[2023-11-12] MEDS: Aspirin Chewable 81 MG TAB PER TUBE SCH (09:26)
[2023-11-12] MEDS: Famotidine/PF 20 mg/2ml Vial SLOW IVP SCH (09:26)
[2023-11-12] MEDS: Carvedilol 6.25 MG TAB PER TUBE SCH (09:26)
[2023-11-12] MEDS: Clopidogrel Bisulfate 75 MG TAB PER TUBE SCH (09:27)
[2023-11-12 11:35] VITALS: BP 122/82; TEMP 98.5
[2023-11-12] MEDS: Nicotine 14 MG PATCH TD SCH (12:22)
== END 2023-11-12 14:20 | DRG 64 ==
LOC: ERS 14:38 → CCU 17:19 → 2SE 11-03 15:25
PROVIDERS: ADMIT Family Medicine; ATTEND Family Medicine
PROC: 0DH67UZ Insertion of Feeding Device into Stomach, Via Natural or Artificial Opening (ICD-10-PCS; principal; 2023-11-02)
PROC: 4A033R1 Measurement of Arterial Saturation, Peripheral, Percutaneous Approach (ICD-10-PCS; 2023-11-02)
PROC: 0BH17EZ Insertion of Endotracheal Airway into Trachea, Via Natural or Artificial Opening (ICD-10-PCS; 2023-11-02)
PROC: 5A1935Z Respiratory Ventilation, Less than 24 Consecutive Hours (ICD-10-PCS; 2023-11-02)
PROC: 4A10X4Z Monitoring of Central Nervous Electrical Activity, External Approach (ICD-10-PCS; 2023-11-03)
PROC: 0DH63UZ Insertion of Feeding Device into Stomach, Percutaneous Approach (ICD-10-PCS; 2023-11-08)
DX: I63.511 Cerebral infarction due to unspecified occlusion or stenosis of right middle cerebral artery (principal); J96.01 Acute respiratory failure with hypoxia; I50.22 Chronic systolic (congestive) heart failure; G81.94 Hemiplegia, unspecified affecting left nondominant side; Z66 Do not resuscitate; Z51.5 Encounter for palliative care; G93.40 Encephalopathy, unspecified; I65.21 Occlusion and stenosis of right carotid artery; J44.9 Chronic obstructive pulmonary disease, unspecified; I25.10 Atherosclerotic heart disease of native coronary artery without angina pectoris; E11.9 Type 2 diabetes mellitus without complications; F17.210 Nicotine dependence, cigarettes, uncomplicated; E78.5 Hyperlipidemia, unspecified; R13.12 Dysphagia, oropharyngeal phase; I95.9 Hypotension, unspecified; R47.01 Aphasia; I11.0 Hypertensive heart disease with heart failure; Z98.890 Other specified postprocedural states; Z79.899 Other long term (current) drug therapy; Z95.810 Presence of automatic (implantable) cardiac defibrillator; Z95.5 Presence of coronary angioplasty implant and graft; Z79.82 Long term (current) use of aspirin
CPT/HCPCS: 0042T; 31500; 36415; 36416; 36600; 51702; 70450; 70496; 70498; 70551; 71045; 74018; 74230; 80048; 80053; 80061; 80306; 80307; 82140; 82805; 83036; 83605; 83735; 84443; 84484; 85025; 85610; 85730; 87040; 93005; 93306; 94002; 94003; 94640; 95711; 95819; 96365; 96366; 96374; 99292; J1650; J1815; J2250; J2405; J2704; J3010; J3475; J3480; J3490; J7042; J7050; J7620; J7626; Q9967; S0028

== ENCOUNTER 2025-01-16 09:32 | Emergency (ER) | payer MEDICARE, MEDICAID | END 2025-01-16 10:24 | disposition home or self-care (01) | LOC: ERS 09:32 | DX: K94.23 Gastrostomy malfunction (principal); J44.9 Chronic obstructive pulmonary disease, unspecified; I11.0 Hypertensive heart disease with heart failure; I50.9 Heart failure, unspecified; K21.9 Gastro-esophageal reflux disease without esophagitis; E11.9 Type 2 diabetes mellitus without complications; I25.2 Old myocardial infarction; F17.210 Nicotine dependence, cigarettes, uncomplicated; Z55.6 Problems related to health literacy; Z75.3 Unavailability and inaccessibility of health-care facilities | CPT/HCPCS: 43762; 74018 ==